=== PATIENT | female | born 1955 | race Caucasian/White ===

== ENCOUNTER → 2016-12-28 | Outpatient (CLI) | payer OTHER ==
[~2016-12-28] MED LIST: DAPA5TAB PO; GLIM2TAB2 PO; METO25TA4 PO; REGADENOSON 0.4 MG/5 ML DISP.SYRIN. IV ONE
--- NOTE | 2016-12-28 13:22 | RAD ---
APPROVED REPORT Test Type: Pharmacological Stress Nurse/Tech: ANGELA Caldera RN Test Indications: Frequent PVC, flutter feeling Cardiac History: see EHR Medications: Metoprolol, glimeripride, farxiga, [place] Medical History: Diabetes, see EHR Resting ECG: SR Resting Heart Rate: 71 bpm Resting Blood Pressure: 107/62mmHg Pretest Chest Pain: No chest pain Nurse/Tech Notes Lungs CTA, heart tones WNL Consent: The procedure was explained to the patient in lay terms. Informed consent was witnessed. Uche eout was entered into [employer]. History and Stress Test performed by [facility] [place] (R) (N) Pharm. Details Pharmacologic stress testing was performed using 0.4mg per 5ml of regadenoson given intravenously ove r 7-10 seconds. Stress Symptoms Reports chest heaviness approx 1 min POST EXERCISE Reason for Termination: Infusion complete Max HR: 126 bpm 94% of Maximum Predicted HR: 134 bpm Max Blood Pressure: 132/67mmHg Chest Pain: Yes. chest heaviness Arrhythmia: Yes. Bigeminal PVC ST Change: No. INTERPRETATION Stress EKG Conclusion: Baseline EKG showed sinus rhythm. No ischemic changes at peak stress. No arr hythmias. Imaging Protocol IMAGE PROTOCOL: Rest Tc-99m/stress Tc-99m 1 day Rest: Stress: Viability: Radiopharm.Tc99m [id number] Sestamibi Pisj89oYh 33mCi Img Date 12/28/2016 12/28/2016 Inj-Img Elty61tgn. 60min. Rest Admin Site:IV - Right AntecubitalAdministrator:[facility] [place] (R)(N) Stress Admin Site: IV - Right AntecubitalAdministrator: RT Jayesh (Carmen)(N) STRESS DATA End Diast. Vol.76.0mlAv. Heart Rate61.0bpm End Syst. Vol.20.0mlCO Index BSA0.0L/min Myocardial Omks904.0gEject. Ltkhbbbt01.0% Stress Rates Pk. Fill Rate2.49EDV/secLVtime Pk. Fill 303.42msec Pk. Empty Rate3.57ESV/secLVtime Pk. Fidkk256.65msec 10/31 Pk. Fill1.22EDV/sec Stress Scores Regional WT0.00Summed WT10.00 Regional WM0.00Summed WM0.00 Study quality was good. Left Ventricular size was Normal at Rest and Stress. Lung uptake was Normal. Left Ventricular ejection fraction is 74%. LV Perfusion Scintigraphic images showed breast attenuation artifact without any other fixed or reversible defects . Wall Motion Normal regional wall motion. LV Perf. Quant 17 Seg. SSS5.00 17 Seg. SRS4.00 17 Seg. SDS2.00 Stress Defect Extent (% LAD)0.00Rest Defect Extent (% LAD)1.30Rev. Defect Extent (% LAD)0.00 Stress Defect Extent (% LCX) 0.00Rest Defect Extent (% LCX)10.00Rev. Defect Extent (% LCX)0.00 Stress Defect Extent (% RCA)0.00Rest Defect Extent (% RCA)0.00Rev. Defect Extent (% RCA)0.00 Stress Defect Extent (% KWADWO)0.00Rest Defect Extent (% KWADWO)2.20Rev. Defect Extent (% KWADWO)0.00 Conclusion 1. Regadenoson cardioisotope stress test showed breast attenuation artifact without any definite evid ence of ischemia or infarct. 2. Normal left ventricular systolic function with ejection fraction calculated at 74%. 3. Low risk for cardiac events.
== END | disposition home or self-care (01) ==
LOC: NM 08:32
PROVIDERS: ATTEND Internal Medicine Cardiovascular Disease
DX: I49.3 Ventricular premature depolarization (principal); E11.9 Type 2 diabetes mellitus without complications
CPT/HCPCS: 78452; 93017; 96374; 96375; 96376; A9500; J2785

== ENCOUNTER → 2019-03-17 | Outpatient (CLI) | payer OTHER ==
[~2019-03-17] MED LIST changes: -REGADENOSON 0.4 MG/5 ML DISP.SYRIN. IV ONE
[2019-03-17 12:10] LABS: ALBUMIN 4.5 g/dL (3.4-5.0); ALBUMIN/GLOBULIN RATIO 1.4 (1.0-1.7); CALCIUM 9.3 mg/dL (8.5-10.1); CREATININE 0.7 mg/dL (0.6-1.0); GFR 84.2; POTASSIUM 4.5 mmol/L (3.5-5.1); TOTAL BILIRUBIN 0.5 mg/dL (0.2-1.0); TOTAL PROTEIN 7.8 g/dL (6.4-8.2)
[2019-03-17 12:12] LABS: CHOLESTEROL/HDL RATIO 4.2
== END | disposition home or self-care (01) ==
LOC: LAB 11:26
PROVIDERS: ATTEND Internal Medicine Cardiovascular Disease
DX: I49.3 Ventricular premature depolarization (principal)
CPT/HCPCS: 36415; 80053; 80061

== ENCOUNTER → 2021-01-06 | Outpatient (CLI) | payer MEDICARE ==
[~2021-01-06] MED LIST changes: -GLIM2TAB2 PO; +GLIM2TAB7 PO
--- NOTE | 2021-01-06 13:14 | KCIC ---
EXAM: Lumbar spine MRI without contrast. HISTORY: Right-sided lumbar radiculopathy. Right lower extremity numbness. Back pain. TECHNIQUE: Multiplanar, multisequence magnetic resonance imaging of the lumbar spine was performed wi thout contrast. COMPARISON: None. FINDINGS: There is grade 1 anterolisthesis of L4 on L5, measuring 6 mm. There is mild lumbar scoliosi s. There is degenerative endplate remodeling and osteophytosis with near complete loss of the disc sp kedar at L5-S1. There is disc desiccation at multiple levels. There are few osseous hemangiomas. The la rgest of these is seen within L5. There is no suspicious osseous lesion. There is no fracture. There is edema within the bilateral facet joints at L4-L5, likely degenerative or inflammatory in etiology. There is a Tarlov cyst within the sacral canal measuring 2.2 cm. The conus terminates at L1. At T12-L1, there is a shallow posterior central disc protrusion. There is no stenosis. At L1-L2, there is no stenosis. At L2-L3, there is a posterior central disc protrusion and annular tear superimposed on a disc bulge and right anterior predominant endplate osteophytosis. There is mild bilateral facet arthropathy. The re is mild central canal stenosis. At L3-L4, there is a disc bulge and endplate remodeling. There is mild bilateral facet arthropathy. T here is no stenosis. At L4-L5, there is a disc bulge and endplate remodeling. There is severe bilateral facet arthropathy. There is grade 1 anterolisthesis. There is moderate central canal stenosis. At L5-S1, there is a shallow broad-based posterior central disc protrusion and osteophyte complex sup erimposed on endplate osteophytosis. There is mild bilateral facet arthropathy. There is no stenosis. IMPRESSION: 1. Multilevel degenerative change involving the lumbar spine, described in detail above. This is asso ciated with mild central canal stenosis L2-L3 and moderate central canal stenosis at L4-L5. 2. Grade 1 anterolisthesis of L4 on L5 and mild lumbar scoliosis. Electronically signed by: Lola Mckeon MD (01/06/2021 1:12 PM) [id number]
== END ==
LOC: KCIC MRI 12:20
PROVIDERS: ATTEND Family Medicine
DX: M47.26 Other spondylosis with radiculopathy, lumbar region (principal); M48.061 Spinal stenosis, lumbar region without neurogenic claudication; M43.16 Spondylolisthesis, lumbar region
CPT/HCPCS: 72148

== ENCOUNTER → 2021-01-27 | Outpatient (CLI) | payer MEDICARE ==
[~2021-01-27] MED LIST changes: +ACET325T9 PO; +ALPH600C5 PO; +ASPI-630 PO; +BLOOD SUGAR PO; +CHOL500016 PO; +EMPA10TA PO; +GLUC1TAB71 PO; +IOHEXOL 180 MG/ML 10 ML VIAL. ONE; +SERT50TA PO; +[UNRECOGNIZED DRUG - OTHER] PO; +methylPREDNISolone ACETATE 40 MG/ML VIAL. ONE; +methylPREDNISolone ACETATE 80 MG/ML VIAL. ONE
--- NOTE | 2021-01-27 11:28 | PDOC1 ---
INITIAL PAIN CONSULT DATE OF SERVICE: DOS: DATE: 01/27/21 TIME: 11:21 CHIEF COMPLAINT: Chief Complaint: Low back and right lower extremity pain HISTORY OF PRESENT ILLNESS: 65-year-old female presents history of pain for many years in the low back and right lower extremity worse over the past 6 months or so without any specific injury or accident that she is aware of but gradually increasing in pain in the low back and right leg. Patient reports worse with walking and standing changing positions better with sitting or laying down but is awaken her from sleep at least once a night patient reports no loss of bowel or bladder control does affect her ability to walk however with pain in the low back rating right lower extremity posterior lateral thigh anterior thigh medial thigh to the knee on the right side patient reports it has a numbness sensation is radiating the right leg and changes during the day with activity she is on her feet longer is much more noticeable by the end of the day. Patient reports significant fatigability in the right leg when standing and walking but no overt motor loss or stumbling or falls. Patient reports no symptoms on the left lower extremity. Patient did have MRI scan lumbar spine showing L4-5 disc bulge and endplate remodeling with severe bilateral facet arthropathy and grade 1 anterolisthesis with moderate central canal stenosis L5-S1 showing broad-based posterior central disc protrusion osteophyte complex superimposed on endplate osteophyte ptosis with mild bilateral facet arthropathy. Patient rates her disability rating 0-10 10 being worst is 8 with family home responsibilities 9 with recreation 7 with social activity occupation 0 sexual behavior 7 with self-care and 5 life support activities. Patient is been taking Tylenol every 8 hours which does decrease the pain by about 30% also Osteo Bi-Flex and cyclobenzaprine which she reports helps to but only to a small extent. Patient reports no bowel or bladder incontinence or loss of motor function. PAST MEDICAL HISTORY: PMH: Type 2 diabetes, irregular heart rhythm, cataracts, arthritis PREVIOUS SURGERIES: Past Surgical Hx: Cataract extraction, left knee scope, cholecystectomy, tubal ligation, right foot surgery CURRENT MEDICATIONS: Current Meds: Active Scripts Medications Dose Route/Sig Max Daily Dose Days Date Category Vitamin D3 (Cholecalciferol (Vitamin D3)) 125 Mcg Tablet 125 Mcg PO DAILY 01/27/21 Reported Osteo Bi-Flex Caplet (Glucosamine/D3/Boswellia Anne) 1 Each Tablet 3 Each PO BID 01/27/21 Reported Alpha Lipoic Acid 600 Mg Capsule 1 Cap PO DAILY 30 01/27/21 Reported Tylenol (Acetaminophen) 325 Mg Tablet 1,200 Mg PO TID 01/27/21 Reported [carandsugarblocker] 1 Tab PO TID 01/27/21 Reported [blood sugar] 1 Tab PO DAILY 01/27/21 Reported Jardiance (Empagliflozin) 10 Mg Tablet 10 Mg PO DAILY 01/27/21 Reported Aspirin 81 Mg Tab.chew 1 Tab PO DAILY 01/27/21 Reported Zoloft (Sertraline Hcl) 50 Mg Tablet 1 Tab PO DAILY 01/27/21 Reported Glimepiride 2 Mg Tablet 2 Mg PO DAILY 12/28/16 Reported Metoprolol Tartrate 25 Mg Tablet 25 Mg PO BID 12/28/16 Reported ALLERGIES; Allergies: Coded Allergies: No Known Drug Allergies (Unverified , 12/28/16) FAMILY HISTORY: Family Hx: Type 2 diabetes, arthritis SOCIAL HISTORY: Social Hx: Patient is nondrug alcohol does not smoke not use any illegal illicit or recreational drugs is single lives 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 REVIEW OF SYSTEMS: ROS: Positive for those items mentioned in history of present illness, all systems are reviewed, otherwise negative ,and are complete full and well-documented on patient's chart. PHYSICAL EXAM: VS: Blood pressure is 100/47 pulse 65 respirations are 18 temperature 98.1 F height is 5 feet 5 inches weight is 201 pounds PE: PHYSICAL EXAMINATION: GENERAL: The patient is awake, alert, oriented, appropriate, very pleasant demeanor HEENT: Shows normocephalic, atraumatic. Extraocular movements are intact and symmetrical. Oral cavity: Mucous membranes moist and pink. Dentition is intact. NECK: Shows anterior throat supple without palpable lymphadenopathy noted. Swallow reflex symmetrical. CHEST: Shows normal on inspection. Breath sounds are clear bilaterally, no rales rhonchi wheezes auscultated. HEART: Shows S1, S2 clear. No murmurs auscultated. For ABDOMEN: Soft, nontender, nondistended, obese. No palpable organomegaly is noted. No rebound or guarding demonstrated. BACK: Shows spine grossly in the midline. Normal-appearing cervical lordotic curvature. There is slightly increased thoracic kyphosis, some minor flattening of the lumbar lordotic curvature. Lumbar paraspinous muscles show symmetrical on inspection, on palpation shows some moderate tenderness diffusely throughout the upper, middle and lower distribution of the paraspinous muscles bilaterally and also into the lower thoracic paraspinous musculature, firm and tender, but without specific trigger points, without radiation of pain. The patient has good rotational motion of the lumbar spine, both laterally as well as extension and flexion without significant difficulty. No tenderness over the spinous processes, sacrum or sacroiliac regions. EXTREMITIES: Lower extremities show deep tendon reflexes 1+ in the patellar and tendo calcaneus tendons. Motor exam is 4 on a scale of 5 with right dorsiflexion, extension, quadriceps and hamstring flexion and 5/5 on the left. Peripheral pulses are 1+ posterior tibial. No peripheral edema is noted bilaterally. Lower extremities are warm and dry to touch, equal in color and appearance. Straight leg raise noted to be positive on the right about 45 degrees, left side is negative. Gaenslen's and Ankit's maneuvers are negative bilaterally. The patient is able to stand, stand on her toes without significant difficulty or loss of balance walks with a normal-appearing gait does not appear to favor the right or left lower extremity significantly is not use any assistive devices such as canes or to ambulate. SKIN: Shows warm and dry, good turgor. No edema. No sores, rashes or bruising throughout. IMPRESSION: Impression: 65-year-old female with long history of low back pain with increased pain over the past 6 months or so and radicular fashion in the right lower extremity. MRI scan lumbar spine as noted Arthritis Hypertension Type 2 diabetes Plan: Options were discussed with the patient including conservative medical management physical therapies and interventional techniques. Patient would like to pursue interventional techniques, we discussed a lumbar epidural steroid injection using description as well as anatomical models to describe the procedure. Risks were discussed including but not limited to: Bleeding, infection, possibility of epidural hematoma and subsequent neurological compromise, dural puncture, headaches, spinal cord and/or nerve damage, side effects of steroid medication, and poor results regarding pain control. Patient understands and wished to proceed. Patient will return to the clinic approximate 2 weeks for follow-up, was counseled as to return appointment activity level and side effects be aware of. Procedure is lumbar epidural steroid injection under local anesthetic using sterile prep and drape at the L4-5 level using C-arm fluoroscopic guidance in both AP and lateral views medications injected is 120 mg Depo-Medrol + 10 mL preservative-free normal saline and 2 mL contrast- condition at discharge is stable patient tolerated procedure well had no complications. ROSARIO CARRASCO MD Jan 27, 2021 11:28
== END | disposition home or self-care (01) ==
LOC: PNCL 08:13
PROVIDERS: ATTEND Anesthesiology
DX: M47.816 Spondylosis without myelopathy or radiculopathy, lumbar region (principal); M48.061 Spinal stenosis, lumbar region without neurogenic claudication; M19.90 Unspecified osteoarthritis, unspecified site; I49.8 Other specified cardiac arrhythmias; E11.9 Type 2 diabetes mellitus without complications; Z98.51 Tubal ligation status; Z79.899 Other long term (current) drug therapy; Z98.890 Other specified postprocedural states; Z90.49 Acquired absence of other specified parts of digestive tract; Z79.82 Long term (current) use of aspirin; Z79.84 Long term (current) use of oral hypoglycemic drugs; Z83.3 Family history of diabetes mellitus; Z82.61 Family history of arthritis
CPT/HCPCS: 62323; J1030; J1040; Q9965

== ENCOUNTER → 2021-02-01 | Outpatient (CLI) | payer MEDICARE ==
[~2021-02-01] MED LIST changes: -IOHEXOL 180 MG/ML 10 ML VIAL. ONE; -methylPREDNISolone ACETATE 40 MG/ML VIAL. ONE; -methylPREDNISolone ACETATE 80 MG/ML VIAL. ONE
--- NOTE | 2021-02-01 17:10 | CARD ---
MR#: [id number] Date of Study: 02/01/2021 Ordering Physician: MARTA GUPTA, Referring Physician: MARTA GUPTA, Tech: Nitza Dotson [facility] APPROVED REPORT EXAM: Two-dimensional and M-mode echocardiogram with Doppler and color Doppler. Other Information Quality : AverageHR: 62bpm Rhythm : NSR INDICATION Palpitations 2D DIMENSIONS RVDd2.7 (2.9-3.5cm)Left Atrium(2D)3.6 (1.6-4.0cm) IVSd0.9 (0.7-1.1cm)Aortic Root(2D)3.2 (2.0-3.7cm) LVDd4.8 (3.9-5.9cm)LVOT Diameter2.1 (1.8-2.4cm) PWd1.0 (0.7-1.1cm)LVDs2.6 (2.5-4.0cm) FS (%) 45.5 %SV81.5 ml Aortic Valve AoV Peak Jonah.114.8cm/sAoV VTI24.2cm AO Peak GR.5.3mmHgLVOT Peak Jonah.93.8cm/s AO Mean GR.2mmHgAVA (VMAX)2.89cm2 Mitral Valve MV E Mhojkncp45.5cm/sMV DECEL [id number] MV A Nsxieuuj76.5cm/sE/A Ratio0.8 Pulmonary Valve PV Peak Dumsmbwt42.5cm/s Tricuspid Valve TR P. Kcrseczw982ix/sTR Peak Gr.18mmHg LEFT VENTRICLE The left ventricle is normal size. There is normal left ventricular wall thickness. The left ventricu lar systolic function is normal and the ejection fraction is within normal range. LV ejection fractio n of 55- 60%. There is normal LV segmental wall motion. The left ventricular diastolic function and f illing is normal for age. RIGHT VENTRICLE The right ventricle is normal size. There is normal right ventricular wall thickness. The right ventr icular systolic function is normal. ATRIA The left atrium size is normal. The right atrium size is normal. The interatrial septum is intact wit h no evidence for an atrial septal defect or patent foramen ovale as noted on 2-D or Doppler imaging. AORTIC VALVE The aortic valve is normal in structure and function. Doppler and Color Flow revealed no significant aortic regurgitation. There is no significant aortic valvular stenosis. MITRAL VALVE The mitral valve is normal in structure and function. There is no evidence of mitral valve prolapse. There is no mitral valve stenosis. Doppler and Color Flow revealed no mitral valve regurgitation note d. TRICUSPID VALVE The tricuspid valve is normal in structure and function. Doppler and Color Flow revealed trace tricus pid regurgitation. Estimated PAP 21 mmHg. There is no tricuspid valve stenosis. GREAT VESSELS The aortic root is normal in size. The ascending aorta is normal in size. The IVC is normal in size a nd collapses >50% with inspiration. PERICARDIAL EFFUSION There is no evidence of significant pericardial effusion. Critical Notification Critical Value: No <Conclusion> The left ventricle is normal size. The left ventricular systolic function is normal and the ejection fraction is within normal range. LV ejection fraction of 55- 60%. Doppler and Color Flow revealed no significant aortic regurgitation. There is no significant aortic valvular stenosis. Doppler and Color Flow revealed no mitral valve regurgitation noted. Doppler and Color Flow revealed trace tricuspid regurgitation. Estimated PAP 21 mmHg. Signed by : Guero Berry MD Electronically Approved : 02/01/2021 17:10:20
== END ==
LOC: ECHO 10:51
PROVIDERS: ATTEND Internal Medicine Cardiovascular Disease
DX: R00.2 Palpitations (principal); I49.3 Ventricular premature depolarization
CPT/HCPCS: 93306

== ENCOUNTER → 2021-02-15 | Outpatient (CLI) | payer MEDICARE ==
[~2021-02-15] MED LIST changes: +IOHEXOL 180 MG/ML 10 ML VIAL. ONE; +methylPREDNISolone ACETATE 40 MG/ML VIAL. ONE; +methylPREDNISolone ACETATE 80 MG/ML VIAL. ONE
--- NOTE | 2021-02-15 13:28 | PDOC ---
Progress Note - Pain Clinic Date of Service: DOS: DATE: 02/15/21 TIME: 13:25 Diagnosis: Dx: Lumbar radiculopathy with lumbar degenerative disease and lumbar spinal stenosis History or Present Illness: HPI: 65-year-old female returns follow-up status post lumbar epidural steroid action x1. Patient ports doing very well about 70% improvement until about a week ago when she had her dog run into her as it was exiting the car and knocked her to the side causing some significant pain in the right leg and low back. Patient reports prior that she is doing very well with increased distance walking doing household activities work activities travel with greater ease and comfort sleeping better at night patient reports still better with sitting or laying down does not generally awaken her from sleep at night patient reports the pain is in the low back now returning in the low back and right lower extremity po sterior gluteus posterior lateral thigh lateral anterior thigh anterior medial thigh and calf patient ports aching and tight cramping can be severe at times patient reports is an 8 on scale 10 is worse over the past week 8 on average and 8/8 today. Patient reports no new motor or sensory deficits no new bowel or bladder incontinence or other complaints at this time. Physical Exam: VS: Blood pressure is 126/74 pulse 73 respirations 16 temperature is 98.0 degrees Fahrenheit weight is 199 pounds PE: PHYSICAL EXAMINATION: GENERAL: The patient is awake, alert, oriented, appropriate, very pleasant demeanor HEENT: Shows normocephalic, atraumatic. Extraocular movements are intact and symmetrical. Oral cavity: Mucous membranes moist and pink. NECK: Shows anterior throat supple without palpable lymphadenopathy noted. Swallow reflex symmetrical. CHEST: Shows normal on inspection. Breath sounds are clear bilaterally. HEART: Shows S1, S2 clear. No murmurs auscultated. ABDOMEN: Soft, nontender, nondistended. No palpable organomegaly is noted. No rebound or guarding demonstrated. BACK: Shows spine grossly in the midline. Normal-appearing cervical lordotic curvature. There is slightly increased thoracic kyphosis, some minor flattening of the lumbar lordotic curvature. Lumbar paraspinous muscles show symmetrical on inspection, on palpation shows some moderate tenderness diffusely throughout the upper, middle and lower distribution of the paraspinous muscles, without specific trigger points, without radiation of pain. The patient has good rotational motion of the lumbar spine, both laterally as well as extension and flexion without significant difficulty. No tenderness over the spinous processes, sacrum or sacroiliac regions. EXTREMITIES: Lower extremities show deep tendon reflexes 1+ in the patellar and tendo calcaneus tendons. Motor exam is 4 on a scale of 5 with right dorsiflexion, extension, quadriceps and hamstring flexion and 5/5 on the left. Peripheral pulses are 1+ posterior tibial. No peripheral edema is noted bilaterally. Lower extremities are warm and dry to touch, equal in color and appearance. SKIN: Shows warm and dry, good turgor. No edema. No sores, rashes or bruising throughout. Procedure: Procedure: Options were discussed with the patient. Patient chart was reviewed as her current medication regimen updated and current review of systems updated today as well. We will proceed with a second in a series lumbar epidural steroid injection with fluoroscopic guidance. Risks were discussed including but not limited to: Bleeding, infection, possibility of epidural hematoma and subsequent neurological compromise, dural puncture, headaches, spinal cord and/or nerve damage, side effects of steroid medication, and poor results regarding pain control. Patient understands and wished to proceed. Patient will return to clinic in approximately 2 weeks for follow-up, was counseled as to return appointment activity level and side effects to be aware of. Medication Injected: Med Injected: Procedure is lumbar epidural steroid injection under local anesthetic using sterile prep and drape at the L4-5 level using C-arm fluoroscopic guidance in b oth AP and lateral views medications injected is 120 mg Depo-Medrol + 10 mL preservative-free normal saline and 2 mL contrast- condition at discharge is stable patient tolerated procedure well had no complications. Condition at Discharge: Condition at Discharge: Condition at discharge stable, patient noted the procedure well and had no complications. ROSARIO CARRASCO MD Feb 15, 2021 13:28
--- NOTE | 2021-02-15 13:29 | PDOC4 ---
PROCEDURE Procedure Patient was consented for lumbar epidural steroid injection. Risks were dis cussed including but not limited to: Bleeding, infection, possibility of epidural hematoma and subsequent neurological compromise, dural puncture, headaches, spinal cord and/or nerve damage, side effects of steroid medication, and poor results regarding pain control. Patient understands and wished to proceed. Procedure is lumbar epidural steroid injection under local anesthetic using sterile prep and drape at the L4-5 level using C-arm fluoroscopic guidance in both AP and lateral views medications injected is 120 mg Depo-Medrol + 10 mL preservative-free normal saline and 2 mL contrast- condition at discharge is stable patient tolerated procedure well had no complications. ROSARIO CARRASCO MD Feb 15, 2021 13:29
== END | disposition home or self-care (01) ==
LOC: PNCL 12:55
PROVIDERS: ATTEND Anesthesiology
DX: M51.16 Intervertebral disc disorders with radiculopathy, lumbar region (principal); M48.061 Spinal stenosis, lumbar region without neurogenic claudication; Z79.82 Long term (current) use of aspirin; Z79.84 Long term (current) use of oral hypoglycemic drugs; Z79.899 Other long term (current) drug therapy
CPT/HCPCS: 62323; J1030; J1040; Q9965

== ENCOUNTER → 2021-03-01 | Outpatient (CLI) | payer MEDICARE ==
--- NOTE | 2021-03-01 14:09 | PDOC ---
Progress Note - Pain Clinic Date of Service: DOS: DATE: 03/01/21 TIME: 14:03 Diagnosis: Dx: Lumbar radiculopathy lumbar degenerative disease, and lumbar spinal stenosis History or Present Illness: HPI: 65-year-old female returns for post lumbar epidural steroid injection x2. Patient reports about 80% improvement in the low back and right lower extremity pain. Patient reports some pain in the back above the hip on the right side and the right flank which has been more problematic at night with some spasticity and tightness otherwise doing much better with the pain in the low back and right lower extremity patient reports he can increase her activity with greater ease and comfort walking greater distances doing household activities work activities travel with greater ease and sleeping better as long as she keeps her right leg straight on her right side. Patient reports the pain is a 10 on scale 10 is worse over the past week 9 on average 7 at its least and is a 10 only when she is been sleeping with her right leg bent and flexed at the hip. Patient reports the pain in the low back and right leg is aching and tight shooting at times stabbing with standing and walking better with sitting or laying down except for laying on her right side is noted. Patient reports no new motor or sensory deficits no new bowel or bladder incontinence or other complaints. Physical Exam: VS: Blood pressure is 131/69 pulse 73 respirations 18 temperature 98.1 F height is 5 feet 5 inches weight is 195 pounds PE: PHYSICAL EXAMINATION: GENERAL: The patient is awake, alert, oriented, appropriate, very pleasant demeanor HEENT: Shows normocephalic, atraumatic. Extraocular movements are intact and symmetrical. Oral cavity: Mucous membranes moist and pink. Dentition is intact. NECK: Shows anterior throat supple without palpable lymphadenopathy noted. Swallow reflex symmetrical. CHEST: Shows normal on inspection. Breath sounds are clear bilaterally. HEART: Shows S1, S2 clear. No murmurs auscultated. ABDOMEN: Soft, nontender, nondistended, obese. No palpable organomegaly is noted. No rebound or guarding demonstrated. BACK: Shows spine grossly in the midline. Normal-appearing cervical lordotic curvature. There is mildly increased thoracic kyphosis, some flattening of the lumbar lordotic curvature. Lumbar paraspinous muscles show symmetrical on inspection, on palpation shows some moderate tenderness diffusely throughout the upper, middle and lower distribution of the paraspinous muscles without specific trigger points, without radiation of pain. The patient has good rotational motion of the lumbar spine, both laterally as well as extension and flexion without significant difficulty. No tenderness over the spinous processes, sacrum or sacroiliac regions. EXTREMITIES: Lower extremities show deep tendon reflexes 1+ in the patellar and tendo calcaneus tendons. Motor exam is 4 on a scale of 5 with right dorsiflexion, extension, quadriceps and hamstring flexion and 5/5 on the left. Peripheral pulses are 1+ posterior tibial. No peripheral edema is noted bilaterally. Lower extremities are warm and dry. SKIN: Shows warm and dry, good turgor. No edema. No sores, rashes or bruising throughout. Procedure: Procedure: Options were discussed with the patient. Patient chart reviews her current medication regimen updated current review of systems updated today as well. We will proceed with a third in the series lumbar epidural steroid injection today with fluoroscopic guidance. Risks were discussed including but not limited to: Bleeding, infection, possibility of epidural hematoma and subsequent neur ological compromise, dural puncture, headaches, spinal cord and/or nerve damage, side effects of steroid medication, and poor results regarding pain control. Patient understands and wished to proceed. Patient will return to clinic in approximate 2 weeks for follow-up, was counseled as to return appointment activity level and side effects to be aware of. Medication Injected: Med Injected: Procedure is lumbar epidural steroid injection under local anesthetic using sterile prep and drape at the L4-5 level using C-arm fluoroscopic guidance in both AP and lateral views medications injected is 120 mg Depo-Medrol + 10 mL preservative-free normal saline and 2 mL contrast- condition at discharge is stable patient tolerated procedure well had no complications. Condition at Discharge: Condition at Discharge: Condition at discharge stable, patient already procedure well and had no complications. ROSARIO CARRASCO MD March 01, 2021 14:09
--- NOTE | 2021-03-01 14:10 | PDOC4 ---
PROCEDURE Procedure Patient was consented for lumbar epidural steroid injection. Risks were dis cussed including but not limited to: Bleeding, infection, possibility of epidural hematoma and subsequent neurological compromise, dural puncture, headaches, spinal cord and/or nerve damage, side effects of steroid medication, and poor results regarding pain control. Patient understands and wished to proceed. Procedure is lumbar epidural steroid injection under local anesthetic using sterile prep and drape at the L4-5 level using C-arm fluoroscopic guidance in both AP and lateral views medications injected is 120 mg Depo-Medrol + 10 mL preservative-free normal saline and 2 mL contrast- condition at discharge is stable patient tolerated procedure well had no complications. ROSARIO CARRASCO MD March 01, 2021 14:10
== END | disposition home or self-care (01) ==
LOC: PNCL 13:12
PROVIDERS: ATTEND Anesthesiology
DX: M51.16 Intervertebral disc disorders with radiculopathy, lumbar region (principal); M48.061 Spinal stenosis, lumbar region without neurogenic claudication; Z79.82 Long term (current) use of aspirin; Z79.899 Other long term (current) drug therapy
CPT/HCPCS: 62323; J1030; J1040; Q9965

== ENCOUNTER → 2021-07-20 | Outpatient (CLI) | payer MEDICARE ==
[~2021-07-20] MED LIST changes: -IOHEXOL 180 MG/ML 10 ML VIAL. ONE; -methylPREDNISolone ACETATE 40 MG/ML VIAL. ONE; -methylPREDNISolone ACETATE 80 MG/ML VIAL. ONE
--- NOTE | 2021-07-21 09:02 | KCIC ---
XR LUMBAR SPINE 2-3V History: Chronic low back pain Comparison: None. Technique: Lateral neutral, flexion and extension views of the lumbar spine. Findings: There are 5 non-rib bearing lumbar vertebral segments. There is no evidence of fracture. No destructive osseous lesions. Minimal anterolisthesis of L4 on L5. No significant motion with flexion and extension. Facet hypertrophy L4-L5 and L5-S1. Severe disc space loss L5-S1. Mild disc space loss L4-L5. Multilevel marginal osteophytes with large flowing osteophytes at the lower thoracic spine, L1-L2 and L2-L3. Soft tissues are unremarkable. IMPRESSION: 1. Degenerative changes the lumbar spine greatest at L5-S1. 2. Mild anterolisthesis of L4 on L5. No abnormal motion during flexion and extension. Electronically signed by: Zachariah Nicole MD (07/21/2021 8:59 AM) [id number]
== END ==
LOC: KCIC 14:29
PROVIDERS: ATTEND Neurological Surgery
DX: M47.817 Spondylosis without myelopathy or radiculopathy, lumbosacral region (principal); M43.17 Spondylolisthesis, lumbosacral region; M25.78 Osteophyte, vertebrae
CPT/HCPCS: 72100

== ENCOUNTER 2021-08-23 09:28 | Outpatient (CLI) | payer MEDICARE ==
[~2021-08-23 09:28] MED LIST changes: +IOHEXOL 180 MG/ML 10 ML VIAL. ONE; +LIDOCAINE 1% Multi-Dose 20 ML VIAL. ONE
[2021-08-23 10:34] VITALS: BP 132/68
[2021-08-23 10:46] VITALS: BP 144/70
--- NOTE | 2021-08-23 10:46 | NUR ---
VS stable. No bleeding at access site. No headache. Instructions provided-- patient signed, verbalized understanding. Patient able to drink Diet Coke, no nausea. Does not want food at this time. Patient's friend driving home. All belongings taken w. patient at time of d/c.
[2021-08-23 10:51] VITALS: BP 146/73
--- NOTE | 2021-08-23 10:59 | RAD ---
EXAM: Fluoroscopic guided lumbar puncture for CT myelography; lumbar spine CT myelogram. HISTORY: 66-year-old female with right leg pain and numbness. TECHNIQUE: The risks of the procedure discussed with the patient and written and verbal consent was o btained. A timeout was performed. The patient was placed in a prone position on the fluoroscopy table and a site overlying L5-S1 was selected for needle entry. The skin in this location was sterilely pr epped, draped and infiltrated with 1 percent lidocaine. A 22-gauge needle was advanced into the theca l sac. 12 cc of Omnipaque 180 intrathecal contrast was then injected into the thecal sac. The needle was removed and a sterile measures placed at the needle entry sites. Standing upright neutral and fle xion and extension fluoroscopic images were obtained. The patient was transferred to the CT suite for the post injection CT portion of the exam and discharged one hour following the procedure in stable condition. There is no immediate complication. 3 fluoroscopic images were obtained for total fluorosc opy time of 30 seconds. *One or more of the following individualized dose reduction techniques were utilized for this examina tion: 1. Automated exposure control. 2. Adjustment of the mA and/or kV according to patient size. 3. Use of iterative reconstruction technique. COMPARISON: MRI dated 01/06/2021. FINDINGS: There is 5 mm grade 1 anterolisthesis of L4 forward on L5. There is lucency and sclerosis i nvolving the left pars interarticularis at this level, suggesting a partial pars defect. There is no additional listhesis. There is multilevel endplate remodeling. There is near complete loss of the dis c space at L5-S1. There are bridging and partially bridging anterior osteophytes at the lower thoraci c and upper lumbar levels. There is no fracture or suspicious osseous lesion. The conus terminates at L1. There is an incidental peripherally calcified splenic artery aneurysm, partially included on the fiel d-of-view and measuring at least 1.7 cm. There is degenerative spurring, subchondral sclerosis and va cuum phenomenon involving the sacroiliac joints. At T12-L1, there is a broad-based left paracentral disc protrusion. There is endplate remodeling. The re is no stenosis. At L1-L2, there is endplate remodeling. There is no stenosis. At L2-L3, there is a broad-based posterior central disc protrusion superimposed on a disc bulge and e ndplate remodeling. There is mild bilateral facet arthropathy. There is mild central canal stenosis. At L3-L4, there is a disc bulge and endplate remodeling. There is mild bilateral facet arthropathy. T here is mild central canal stenosis. At L4-L5, there is a disc bulge and endplate remodeling. There is severe bilateral facet arthropathy. There is prominent dorsal epidural fat. There is grade 1 anterolisthesis. There is mild left foramin al stenosis. There is moderate central canal stenosis. At L5-S1, there is partial bony bridging across the disc space. There is a broad-based left paracentr al to lateral recess bridging osteophyte. There is moderate right and mild left facet arthropathy. Th ere is mild left foraminal stenosis. There is narrowing of the left lateral recess. IMPRESSION: 1. Multilevel degenerative change involving the lumbar spine, described in detail above. This is asso ciated with mild central canal stenosis at L2-L3 and L3-L4, mild left foraminal and moderate central canal stenosis at L4-L5 and mild left foraminal stenosis and narrowing of the left lateral recess at L5-S1. 2. Grade 1 anterolisthesis of L4 and L5 with suspected partial left pars defect. Electronically signed by: Lola Mckeon MD (08/23/2021 10:57 AM) [id number]
--- NOTE | 2021-08-23 11:02 | NUR ---
Disc given to patient.
[2021-09-14] MEDS ORDERED: UBID200C7 PO (13:23)
[2021-09-14] MEDS ORDERED: HYDR12.575 PO (13:23)
[2021-09-14] MEDS ORDERED: TIZA4TAB8 PO (13:23)
[2021-09-14] MEDS ORDERED: VITA1TAB19 PO (13:23)
[2021-09-14] MEDS ORDERED: PIOG30TA41 PO (13:23)
[2021-09-14] MEDS ORDERED: CALC-32 PO (13:23)
[2021-09-14] MEDS ORDERED: METF-658 PO (13:23)
[2021-09-14] MEDS ORDERED: ASCO1CAP2 PO (13:23)
[2021-09-14] MEDS ORDERED: CYAN50009 PO (13:23)
[2021-09-14] MEDS ORDERED: BERBERINE PO (13:23)
[2021-09-14] MEDS ORDERED: CINN1CAP PO (13:23)
[2021-09-14] MEDS ORDERED: THC PO (13:27)
[2021-09-14] MEDS ORDERED: [UNRECOGNIZED DRUG - OTHER] PO (13:27)
== END 2021-08-23 11:01 | disposition home or self-care (01) ==
LOC: RAD 09:28
PROVIDERS: ATTEND Neurological Surgery
DX: M47.816 Spondylosis without myelopathy or radiculopathy, lumbar region (principal); M48.061 Spinal stenosis, lumbar region without neurogenic claudication; M79.604 Pain in right leg; Z79.82 Long term (current) use of aspirin; Z79.899 Other long term (current) drug therapy
CPT/HCPCS: 62304; 72132

== ENCOUNTER → 2021-09-14 | Outpatient (CLI) | payer MEDICARE ==
[2021-08-23 10:51] VITALS: BP 146/73
[~2021-09-14] MED LIST changes: +ASCO1CAP2 PO; +BERBERINE PO; +CALC-32 PO; +CINN1CAP PO; +CYAN50009 PO; +DOCU-109 PO; +HYDR12.575 PO; -IOHEXOL 180 MG/ML 10 ML VIAL. ONE; -LIDOCAINE 1% Multi-Dose 20 ML VIAL. ONE; +METF-658 PO; +OXYC1TAB15 PO; +PIOG30TA41 PO; +THC PO; +TIZA4TAB8 PO; +UBID200C7 PO; +VITA1TAB19 PO; +[UNRECOGNIZED DRUG - OTHER] PO
[2021-09-14 13:28] LABS: BASO % 1 % (0-3); EOS # 0.1 x10^3/uL (0.0-0.7); EOS % 2 % (0-3); HEMOGLOBIN 13.2 g/dL (12.0-15.5); LYMPH # 1.3 x10^3/uL (1.0-4.8); LYMPH % 26 % (24-48); MEAN CORPUSCULAR HEMOGLOBIN 32 pg (25-35); MEAN CORPUSCULAR HGB CONC 34 g/dL (31-37); MEAN CORPUSCULAR VOLUME 93 fL (79-100); MONO # 0.5 x10^3/uL (0.0-1.1); MONO % 10 % (0-9); NEUT % 62 % (31-73); PLATELET COUNT 279 x10^3/uL (140-400); RED BLOOD COUNT 4.17 x10^6/uL (3.50-5.40); WHITE BLOOD COUNT 4.8 x10^3/uL (4.0-11.0)
[2021-09-14 13:39] LABS: PROTHROMBIN TIME PATIENT 12.5 SEC (11.7-14.0)
[2021-09-14 13:49] LABS: ALBUMIN 4.1 g/dL (3.4-5.0); ALBUMIN/GLOBULIN RATIO 1.5 (1.0-1.7); CALCIUM 8.9 mg/dL (8.5-10.1); CREATININE 0.6 mg/dL (0.6-1.0); GFR 99.7; POTASSIUM 4.1 mmol/L (3.5-5.1); TOTAL BILIRUBIN 0.5 mg/dL (0.2-1.0); TOTAL PROTEIN 6.9 g/dL (6.4-8.2)
[2021-09-16 02:08] LABS: HEMOGLOBIN A1C 7.4 % (4.8-5.6)
== END ==
LOC: SURGPAT 12:50
PROVIDERS: ATTEND Neurological Surgery
DX: Z01.818 Encounter for other preprocedural examination (principal); M43.16 Spondylolisthesis, lumbar region; M48.062 Spinal stenosis, lumbar region with neurogenic claudication; M54.16 Radiculopathy, lumbar region
CPT/HCPCS: 36415; 80053; 83036; 85025; 85610; 85730; 87641

== ENCOUNTER → 2021-09-16 | Outpatient (CLI) | payer MEDICARE ==
[2021-08-23 10:51] VITALS: BP 146/73
== END ==
LOC: LAB 10:28
PROVIDERS: ATTEND Neurological Surgery
DX: Z01.812 Encounter for preprocedural laboratory examination (principal); Z20.822 Contact with and (suspected) exposure to COVID-19
CPT/HCPCS: U0003; U0005

== ENCOUNTER → 2021-10-14 | Outpatient (CLI) | payer MEDICARE ==
[2021-09-21 11:00] VITALS: BP 125/42
--- NOTE | 2021-10-15 08:45 | KCIC ---
EXAM: Lumbar spine, 2 views. HISTORY: Lumbar surgery. COMPARISON: 08/23/2021. FINDINGS: 2 views of the lumbar spine are obtained. There is instrumented posterior spinal fusion wit h disc space fusion device placement at L4-L5. There is a 6 mm grade 1 anterolisthesis of L4 on L5. T here is 2 mm retrolisthesis of L1 on L2 and 3 mm retrolisthesis of L5 on S1. There is multilevel endp late remodeling. There are bridging and partially bridging anterior osteophytes at the lower thoracic and upper lumbar levels. There is near complete loss of the disc space and advanced facet arthropath y at L5-S1. There are incidental cholecystectomy clips. There is degenerative spurring involving the sacroiliac joints. There is suspected bone demineralization. IMPRESSION: 1. Instrumented posterior spinal fusion and disc space fusion device placement at L4-L5. There is unc hanged grade 1 anterolisthesis at this level. 2. Multilevel degenerative change throughout the remainder of the lower thoracic and lumbar spine, de scribed in detail above. This is unchanged compared to the prior exam, allowing for differences in im aging modality. Electronically signed by: Lola Mckeon MD (10/15/2021 8:42 AM) [facility]
== END ==
LOC: KCIC 15:24
PROVIDERS: ATTEND Neurological Surgery
DX: M47.815 Spondylosis without myelopathy or radiculopathy, thoracolumbar region (principal); M43.17 Spondylolisthesis, lumbosacral region; M25.78 Osteophyte, vertebrae; M48.8X7 Other specified spondylopathies, lumbosacral region; Z98.1 Arthrodesis status
CPT/HCPCS: 72100

== ENCOUNTER → 2021-10-25 | Outpatient (CLI) | payer MEDICARE ==
[2021-09-21 11:00] VITALS: BP 125/42
[~2021-10-25] MED LIST changes: +GADOTERATE 5 MMOL/10ML VIAL. IVP ONE
--- NOTE | 2021-10-25 10:31 | KCIC ---
EXAMINATION: Magnetic resonance imaging (MRI) of the lumbar spine with and without contrast 8:10 AM HISTORY: Lumbar spine operation 09/19/2021. Right lower extremity numbness and tingling TECHNIQUE: Multiplanar multi-weighted MRI of the lumbar spine was performed with and without intraven ous contrast using the standard lumbar spine protocol. Contrast information: Gadolinium based contrast. COMPARISON: CT lumbar spine 09/17/2021, MRI lumbar spine 01/06/2021 FINDINGS: Posterior and interbody fusion is identified at L4-L5 with bilateral pedicle screws and dual rods. Th ere is edema involving the endplates of L4 on L5. Vertebral body heights are maintained. Acute fractu re. There is 1 mm retrolisthesis of L3 on L4. There is 3 mm retrolisthesis of L4 on L5, stable. Advan alejandra disc height loss L5-S1. Conus medullaris terminates at L1. Distal spinal cord signal intensity is normal in all sequences. Disc desiccation at all of the lumbar spine, sparing L1-L2. Kidneys are nor mal in appearance. Abdominal aorta is normal in caliber. No suspicious retroperitoneal abnormality is identified. There is reactive enhancement identified at L4-L5 from recent surgery. No abscess or com pressive epidural hematoma. L2-L3: There is a disc bulge with central disc protrusion. Mild facet arthropathy. Moderate bilateral neuroforaminal stenosis. Mild spinal canal stenosis. Findings are stable. L3-L4: There is a circumferential disc bulge. Mild facet arthropathy. Mild to moderate left and moder ate neural foraminal stenosis. No significant spinal canal stenosis. L4-L5: This level is fused and decompressed. No residual lateral recess stenosis or spinal canal sten osis. There is persistent right neuroforaminal stenosis. L5-S1: There is a posterior disc osteophyte complex is stable. Mild facet arthropathy. Mild left neur oforaminal stenosis. No spinal canal stenosis. Tarlov cyst identified at S2 measuring 2.0 cm. IMPRESSION: Posterior and interbody fusion identified at L4-L5 with expected postsurgical changes identified. No significant epidural abscess or hematoma. No residual spinal canal stenosis. Mild to moderate degenerative changes of lumbar spine as described in detail above. Findings are not significant changed at additional levels. Electronically signed by: Maida Robertson MD (10/25/2021 10:28 AM) [id number]
== END ==
LOC: KCIC MRI 07:57
PROVIDERS: ATTEND Neurological Surgery
DX: M47.26 Other spondylosis with radiculopathy, lumbar region (principal); M51.27 Other intervertebral disc displacement, lumbosacral region; M48.8X7 Other specified spondylopathies, lumbosacral region; M48.07 Spinal stenosis, lumbosacral region; G96.191 Perineural cyst; M43.16 Spondylolisthesis, lumbar region; M51.37 Other intervertebral disc degeneration, lumbosacral region; Z98.1 Arthrodesis status
CPT/HCPCS: 72158; 82565; A9575

== ENCOUNTER 2021-11-14 06:13 | Inpatient (IN) | payer MEDICARE ==
[2021-11-10 14:29] VITALS: BP 150/70
--- NOTE | 2021-11-13 14:06 | PREOP HP ---
DATE OF SERVICE: 11/14/2021 HISTORY OF PRESENT ILLNESS: The patient is a pleasant 66-year-old who has continued to have right-sided lower back pain and pain in her right hip and lateral thigh and inguinal region since her surgery in August, which was decompression and interbody fusion at L4-5. The tingling can radiate down to her right foot. Mornings are particularly uncomfortable for her. Walking is also difficult for her. She said a Medrol Dosepak did help her. She uses a walker. CURRENT MEDICATIONS: Tylenol, vitamin B12, Osteo Bi-Flex, cinnamon, biotin, vitamin C, collagen, coenzyme Q10, aspirin, sertraline, hydrochlorothiazide, pioglitazone, metformin, tizanidine, Percocet. PAST MEDICAL HISTORY: Arthritis, diabetes. PAST SURGICAL HISTORY: Cholecystectomy, tubal ligation, right foot surgery, left knee surgery, cataract surgery, instrumented lumbar fusion L4-5 in 08/2021. FAMILY HISTORY: Diabetes. SOCIAL HISTORY: Retired. . Does not smoke. Drinks alcohol 1-2 times per year. ALLERGIES: No known drug allergies. REVIEW OF SYSTEMS: A 12-point review of systems was performed and is noncontributory except that mentioned above. PHYSICAL EXAMINATION: GENERAL: Alert, pleasant, in no acute distress. HEENT: Head is normocephalic, atraumatic. SKIN: Warm and dry. Well-healed incision. MUSCULOSKELETAL: Lumbar paraspinal muscle bulk is normal, restricted range of motion of the lumbar spine, aoat-us-dnimortr tenderness of the lower lumbar spine with palpation, normal range of motion of the lower extremities bilaterally. EXTREMITIES: No clubbing, cyanosis or edema. NEUROLOGIC: Alert and oriented x 3. Strength is 5/5 in the lower extremities bilaterally. Sensory was intact to light touch in the lower extremities bilaterally except for decrease in the dorsum of her left foot, reflexes were present and symmetric in the lower extremities bilaterally, negative straight leg raising, ambulates with a walker. IMAGING: I reviewed a lumbar MRI scan. On that study at the foramen at L4-5 on the right, this appears occluded. There is metal artifact, which makes more accurate interpretation difficult. ASSESSMENT AND PLAN: I am very concerned that there is some narrowing of the right-sided foramen at L4-5 as well as lateral recess stenosis causing radicular pain. This area needs to be explored carefully. She has had plenty of time and conservative measures to improve and has not done so and is worsening. I spoke with her about hardware removal, decompression of the foramen and hardware replacement, fusion and closure. She understands the technique and the risk as well as the expected postoperative course and would like to go ahead. We will make the arrangements. HAVEN DR: Mariza TID: [id number] [facility]ITAL[facility]
[~2021-11-14] VITALS: Ht 165.1 cm; Wt 88.3 kg
[~2021-11-14 06:13] MED LIST changes: +DEXAMETHASONE SOD PHOS 4 MG/ML VIAL ONE; +EZET10TA20 PO; -GADOTERATE 5 MMOL/10ML VIAL. IVP ONE; +GLYCOPYRROLATE 1 MG/5 ML VIAL. ONE; +HYDROmorphone 2 MG/ML INJ. IVP PRN; +IV RINGERS,LACTATED 1000ML 1,000 ML IV SCH; +LIDOCAINE 2% PF 5 ML VIAL. ONE; +MORPHINE SULFATE 2 MG/ML INJ. IVP PRN; +NEOSTIGMINE METHYLSULFATE 5 MG/5 ML SYRINGE. ONE; +PHENYLEPHRINE 10 MG/ML VIAL. ONE; +PROCHLORPERAZINE 10 MG/2 ML VIAL. IVP PRN; +PROPOFOL 10 MG/ML (20ML) VIAL. IV ONE; +PROPOFOL 50 ML IV ONE; +REMIFENTANIL 1 MG VIAL. IV ONE; +ROCURONIUM 50 MG/5 ML VIAL. ONE; +SEVOFLURANE > 120 MINUTES. IH ONE; +SUCCINYLCHOLINE 200 MG/10 ML VIAL. ONE; +fentaNYL PF VIAL 100 MCG/2 ML VIAL IVP PRN
[2021-11-14] MEDS ORDERED: THROMBIN TOPICAL 20,000 UNIT SPRAY.SYRN KIT TP ONE ×2 (06:32→10:05)
[2021-11-14] MEDS ORDERED: KETOROLAC 60 MG/2 ML VIAL. ONE (06:32)
[2021-11-14] MEDS ORDERED: BUPIVACAINE-EPI 0.5% 30 ML VIAL KIT. ONE (06:32)
[2021-11-14] MEDS ORDERED: GELATIN SPONGE SIZE 100. ONE (06:32)
[2021-11-14 06:53] VITALS: BP 115/59
[2021-11-14] MEDS ORDERED: INSULIN LISPRO 100 UNIT/ML 3ML VIAL for OP,RR ONLY. SQ PRN (07:00)
[2021-11-14] MEDS ORDERED: ceFAZolin SODIUM 1 GM in IV NORMAL SALINE 1000ML BAG 1,000 ML IRR ONE (07:00)
[2021-11-14] MEDS ORDERED: EPINEPHrine VIAL 30 MG/30 ML VIAL ONE (07:22)
[2021-11-14] MEDS ORDERED: HYDROCORTISONE SOD SUCC/PF 100 MG/2 ML VIAL. ONE (07:32)
[2021-11-14] MEDS ORDERED: KETAMINE HCL IN NACL, ISO-OSM 50 MG/5 ML SYRINGE ONE (08:07)
--- NOTE | 2021-11-14 08:22 | RAD ---
CT LUMBAR SPINE WO History:Reason: BRAIN LAB. LUMBAR RADICULOPATHY / Spl. Instructions: / History: Technique: Noncontrast CT was performed of the lumbar spine. Multiplanar reconstructions were perform ed. Exposure: One or more of the following individualized dose reduction techniques were utilized for thi s examination: 1. Automated exposure control 2. Adjustment of the mA and/or kV according to patient size 3. Use of iterative reconstruction technique. Comparison: MRI October 17, 2021 Findings: Posterior stabilization and interbody fusion L4-L5. Grade 1 anterolisthesis L4 on L5. Normal vertebra l body height. No acute fracture. L5-S1 bony intervertebral fusion. Sacral Tarlov cysts noted. T12-L1: Posterior calcified disc bulge. No canal or neuroforaminal narrowing. L1-L2: Small disc bulge. No canal or neuroforaminal narrowing. L2-L3: Broad-based disc bulge. Mild subarticular recess narrowing. No canal narrowing. Minimal right neuroforaminal narrowing. L3-L4: Broad-based disc bulge. Mild canal narrowing. Subacute recess narrowing. Facet arthropathy. L igament of flavum thickening. Mild bilateral neuroforaminal narrowing. L4-L5: Anterolisthesis. Disc uncovering. Disc bulge. No definite canal narrowing although evaluation is degraded by beam hardening artifact from hardware. Severe right and moderate left neuroforaminal narrowing. L5-S1: Bony intervertebral fusion. No canal narrowing. Posterior decompression. Mild bilateral neuro foraminal narrowing. When compared the prior examination the degenerative findings are similar. Impression: 1. Postoperative changes L4-L5. 2. Multilevel lumbar spondylosis most prominent superior junctional level L3-L4. 3. L3-L4 mild canal narrowing. 4. Neuroforaminal narrowing most prominent L4-5. Electronically signed by: Erik Navarrete DO (11/14/2021 8:20 AM) [id number]
[2021-11-14] MEDS ORDERED: PROPOFOL 50 ML IV ONE ×2 (09:19)
[2021-11-14] MEDS ORDERED: BUPIVACAINE-EPI 0.5% 30 ML VIAL KIT. INJ ONE (10:05)
[2021-11-14] MEDS ORDERED: GELATIN SPONGE SIZE 100. TP ONE (10:05)
[2021-11-14] MEDS ORDERED: KETOROLAC 60 MG/2 ML VIAL. INJ ONE (10:05)
[2021-11-14] MEDS ORDERED: REMIFENTANIL 1 MG VIAL. IV ONE (10:20)
[2021-11-14] MEDS ORDERED: HYDROmorphone 2 MG/ML INJ. ONE ×3 (11:37→15:12)
[2021-11-14] MEDS ORDERED: oxyCODONE/APAP 5/325 1 TAB TABLET PO PRN (14:00)
[2021-11-14] MEDS ORDERED: MAGNESIUM HYDROXIDE 2,400 MG/30 ML ORAL.SUSP. PO PRN (14:00)
[2021-11-14] MEDS ORDERED: CALCIUM CARBONATE 500 MG TAB.CHEW PO PRN (14:00)
[2021-11-14] MEDS ORDERED: DEXTROSE 50% 25 GM / 50ML DISP.SYRIN. IV PRN (14:00)
[2021-11-14] MEDS ORDERED: NALOXONE 0.4 MG/ML VIAL. IV PRN (14:00)
[2021-11-14] MEDS ORDERED: MAG HYDROX/ALUMINUM HYD/SIMETH 30 ML ORAL.SUSP PO PRN (14:00)
[2021-11-14] MEDS: tiZANidine 4 MG TABLET. PO SCH ×2 (14:00→21:16)
[2021-11-14] MEDS ORDERED: diphenhydrAMINE HCL 25 MG CAPSULE PO PRN (14:00)
[2021-11-14] MEDS ORDERED: ACETAMINOPHEN 325 MG TABLET. PO PRN (14:00)
[2021-11-14] MEDS ORDERED: ONDANSETRON PF 4 MG/2 ML VIAL. IVP PRN (14:00)
[2021-11-14] MEDS ORDERED: 0.9 % SODIUM CHLORIDE 10 ML DISP.SYRIN. IV PRN (14:00)
[2021-11-14] MEDS ORDERED: fentaNYL PF VIAL 100 MCG/2 ML VIAL ONE (14:33)
[2021-11-14] MEDS ORDERED: MORPHINE SULFATE 2 MG/ML INJ. ONE (14:45)
[2021-11-14] MEDS ORDERED: PROCHLORPERAZINE 10 MG/2 ML VIAL. ONE (14:54)
[2021-11-14 15:23] LABS: HEMATOCRIT 36.8 % (36.0-47.0); HEMOGLOBIN 12.2 g/dL (12.0-15.5); RED BLOOD COUNT 4.07 x10^6/uL (3.50-5.40); RED CELL DISTRIBUTION WIDTH 13.1 % (11.5-14.5); WHITE BLOOD COUNT 5.6 x10^3/uL (4.0-11.0)
--- NOTE | 2021-11-14 15:37 | EKG ---
[facility] [address] [place] [address] Test Date: 2021-11-14 Test Time: 14:12:10 Pat Name: PREET SANTOYO Department: Room: [place] [address] Gender: F Property Developer: : [id number] Requested By: ARON BELLO Order Number: [id number] Reading MD: Chandu Lopez MD Measurements Intervals Morrison Rate: 112 P: 24 SD: 148 QRS: -7 QRSD: 138 T: 137 QT: 362 QTc: 496 Interpretive Statements SINUS TACHYCARDIA LBBB NON-SPECIFIC ST/T CHANGES Electronically Signed On 11-14-2021 16:16:05 SEATER GRINDER by Chandu Lopez MD
[2021-11-14 15:53] LABS: ALBUMIN 3.3 g/dL (3.4-5.0); CALCIUM 8.4 mg/dL (8.5-10.1); CREATININE 0.6 mg/dL (0.6-1.0); GFR 99.7; POTASSIUM 3.5 mmol/L (3.5-5.1); TOTAL BILIRUBIN 0.3 mg/dL (0.2-1.0); TOTAL PROTEIN 6.5 g/dL (6.4-8.2)
[2021-11-14] MEDS ORDERED: POTASSIUM CL 20MEQ-0.45% NACL 1,000 ML IV SCH (16:00)
[2021-11-14] MEDS: CALCIUM CARB/VIT D3 500/200 TABLET. PO SCH (17:00)
[2021-11-14] MEDS: ceFAZolin SODIUM IV Push 1 GM VIAL. IVP SCH ×2 (17:30→21:21)
[2021-11-14 19:15] VITALS: BP 121/56
[2021-11-14] MEDS ORDERED: BOSWELLIA SERRA PO SCH (21:00)
[2021-11-14] MEDS ORDERED: GLUCOSAMINE PO SCH (21:00)
[2021-11-14] MEDS ORDERED: D3 PO SCH (21:00)
[2021-11-14] MEDS: DOCUSATE SODIUM 100 MG CAPSULE. PO SCH (21:16)
[2021-11-14] MEDS: fentaNYL PF VIAL 100 MCG/2 ML VIAL IVP PRN ×2 (21:20→21:56)
[2021-11-14 22:10] VITALS: BP 116/56
--- NOTE | 2021-11-14 23:20 | OP ---
DATE OF SURGERY: 11/14/2021 PREOPERATIVE DIAGNOSIS: Foraminal narrowing, right L4-L5 with lumbar radiculopathy. POSTOPERATIVE DIAGNOSIS: Foraminal narrowing, right L4-L5 with lumbar radiculopathy. OPERATIONS PERFORMED: Removal of hardware, L4-L5 right; decompression of the L5 and L4 nerve roots, L4-L5 right; microdiskectomy, L4-L5 right; removal of interbody fusion cage, L4-L5; replacement of hardware, L4-L5; augmentation of fusion with autograft bone; BrainLAB guidance with multimodality monitoring including EMG, SSEPs, motor evoked potentials. Fluoroscopy was used as well as BrainLAB guidance. SURGEON: Albert Graff M.D. BRAILLE TEACHER: JOSE ANGEL Johnston; assisted with the surgery. She assisted with the exposure, the microdecompression, microdiscectomy, removal of hardware, removal of cage, replacement of hardware and closure. OPERATIVE INDICATIONS: The patient about 6 weeks ago underwent lumbar surgery with a wide decompression at L4-5, combined with posterior instrumentation and posterolateral fusion. She developed problems with right leg pain in the early postoperative period, which responded well to oral steroids, but would return and become severe. I repeated her imaging studies and there was foraminal narrowing at L4-L5. I recommended lumbar microsurgery at this level. I spoke with her about the surgery, the risks, technique and expected postoperative course, and she wished to go ahead. DESCRIPTION OF PROCEDURE: Following general endotracheal anesthesia, the patient was positioned prone on Refugio table. Lumbar region prepped and draped in standard fashion. KIEL hose and AV impulse boots were applied for DVT prophylaxis. The microscope was draped. Fluoroscopy was draped and brought into the field. Monitoring was established. Ancef 2 grams was given less than one hour prior to initiation of surgery. Using fluoroscopic guidance, a midline posterior incision was reopened over the L4-L5 interspace. I dissected down through skin and subcutaneous tissue, attached the BrainLAB Star to the spinous process of inferior L5 and initialized BrainLAB system. Using the BrainLAB, then I fully reopened her incision, dissected down, exposed the right-sided lamina, facets, hardware and placed self-retaining retractors. I removed the screws without difficulty. I then began to work through the dense scar and exposed the dura, the L5 root, the L4 root. The L4 root appeared to be compressed by a mass, which was inferior to the disc space and I worked out through this and removed a large fragment of cartilaginous disc material. This markedly decompressed the entire region. I was able to better visualize the L4 root and the L5 root. I did enter into the disc space and reattached to the cage and removed the interbody fusion cage. I then removed disc material and I fully decompressed the entire region. The root was quite free throughout its course. I had some of the bone I obtained with the decompression, I packed into the lateral gutter on the right. I then replaced the screws with larger diameter screws of 7.5 and replaced the kostas. I continued to use the [place] system. I torqued sequentially. I then irrigated with antibiotic solution carefully. I felt that the roots were very free, at the initiation of the procedure, they were not. I then closed the wound in layers with absorbable suture. Skin was closed with robin. ALEJANDRA DR: Yoly TID: [id number] JENNIFER
[2021-11-15] MEDS ORDERED: INFLUENZA VAX SCREEN BY RX. MC PRN (00:30)
[2021-11-15] MEDS: fentaNYL PF VIAL 100 MCG/2 ML VIAL IVP PRN (01:12)
[2021-11-15 03:40] VITALS: BP 139/66
[2021-11-15] MEDS: oxyCODONE/APAP 5/325 1 TAB TABLET PO PRN ×3 (04:06→14:04)
[2021-11-15] MEDS: ceFAZolin SODIUM IV Push 1 GM VIAL. IVP SCH (05:53)
[2021-11-15 07:00] VITALS: BP 134/63
[2021-11-15] MEDS ORDERED: metFORMIN XR 500 MG TAB.ER.24H PO SCH (08:00)
--- NOTE | 2021-11-15 08:00 | NUR ---
Ambulated to bathroom with steady gait with walker. Tolerated it well. Voided without difficulty. Up in chair for breakfast. Cont. monitor.
[2021-11-15] MEDS: DOCUSATE SODIUM 100 MG CAPSULE. PO SCH (08:12)
[2021-11-15] MEDS: CALCIUM CARB/VIT D3 500/200 TABLET. PO SCH (08:13)
[2021-11-15] MEDS: tiZANidine 4 MG TABLET. PO SCH ×2 (08:14→14:00)
[2021-11-15] MEDS ORDERED: COLLAGEN HYDR PO SCH (09:00)
[2021-11-15] MEDS ORDERED: NON FORMULARY ITEM (Ubidecarenone (Co Q-10) 1 CAP) PO SCH (09:00)
[2021-11-15] MEDS ORDERED: VITAMIN B COMPLEX TABLET. PO SCH (09:00)
[2021-11-15] MEDS ORDERED: ASPIRIN CHEWABLE 81 MG TABLET. PO SCH (09:00)
[2021-11-15] MEDS ORDERED: CYANOCOBALAMIN (VITAMIN B-12) 1,000 MCG TABLET. PO SCH (09:00)
[2021-11-15] MEDS ORDERED: ASCORBIC ACID PO SCH (09:00)
[2021-11-15] MEDS ORDERED: CINNAMON BARK PO SCH (09:00)
[2021-11-15] MEDS ORDERED: PIOGLITAZONE 15 MG TABLET. PO SCH (09:00)
[2021-11-15] MEDS ORDERED: CHROMIUM PO SCH (09:00)
[2021-11-15] MEDS ORDERED: EZETIMIBE 10 MG TABLET. PO SCH (09:00)
[2021-11-15] MEDS ORDERED: SERTRALINE 50 MG TABLET. PO SCH (09:00)
[2021-11-15] MEDS ORDERED: ALA PO SCH (09:00)
[2021-11-15] MEDS ORDERED: hydroCHLOROthiazide 12.5 MG CAPSULE PO SCH (09:00)
[2021-11-15] MEDS ORDERED: BERBERINE PO SCH (09:00)
--- NOTE | 2021-11-15 09:13 | DISCH ---
DISCHARGE INSTRUCTIONS Condition on Discharge Condition on Discharge: Stable Activity After Discharge Activity Instructions for Disc: Activity as tolerated, Avoid exertion, Prog ressive ambulation Other activity instructions: wear brace when up Bathing Instructions: Shower-keep dressing dry, No Tub Bath until see Lifting Instructions after Dis: No heavy lifting, No pulling or pushing, Do not lift >10 pounds Exercise Instruction after Dis: Exercise per therapy, Progress as tolerated Driving Instructions after Dis: Do not drive Weight Bearing Status after Di: No restrictions Diet after Discharge Diet after Discharge: Diabetic No Calorie Level Liquid Texture: Thin Liquid Wound Incision Care Wound/Incision Care: Ice to area for comfort, Keep wound/cast CDI, Change dressing Other wound/incision instructi: daily dressing change and as needed, robin Wound Care Equipment: Dressings, Sutures/robin Contacting the DRMargarito after DC Call your doctor for: Concerns you may have Follow-Up Follow up with: Dr. Graff's nurse in 2 weeks [phone] Follow Up With: Dr. Fallon [phone] Treatment/Equipment after DC Adaptive Equipment Issued: Brace/splint, NAVARRO aLncaster MD Nov 15, 2021 09:13
[2021-11-15] MEDS ORDERED: DEXTROSE 50% 25 GM / 50ML DISP.SYRIN. IV PRN (10:00)
[2021-11-15] MEDS ORDERED: INSULIN GLARGINE SYRINGE. SQ ONE (10:00)
[2021-11-15] MEDS ORDERED: FLU VACC QUAD 21-22 (6MOS+) PF 0.5 ML SYRINGE. VAX IM ONE (10:00)
--- NOTE | 2021-11-15 10:07 | PDOC2 ---
CONSULT Date of Consult Date of Consult DATE: 11/15/21 TIME: 09:49 Reason for Consult Reason for Consult: Diabetic control/medical management Referring Physician Referring Physician: Dr. Albert Graff Identification/Chief Complaint Chief Complaint Low back pain Source Source: Chart review, Patient History of Present Illness Reason for Visit: Ms Butler is a 66-year-old female with past medical history type 2 diabetes, osteoarthritis and chronic back pain who underwent L4-5 lumbar fusion August 2021 who was admitted for continued right lower back pain radiating into her hip thigh and groin and into her right foot. Is been having more difficulty with walking and did get some improvement with steroids outpatient and noted on outpatient MRI with L4-5 right foraminal narrowing and has returned for definit david treatment with hardware removal. On 11/14/2021 underwent decompression of the L5 and L4 nerve roots with L4-L5 right; microdiskectomy, and removal of interbody fusion cage, L4-L5; replacement of hardware, L4-L5; augmentation of fusion with autograft bone. Seen post- operatively Day 1. She is currently pain-free. Glucoses in the 200s. She notes she takes metformin and Actos at home and her A1c is around 6.7-6.9 over the last year. She does note she has lispro pen at home. She has no chest pain or shortness of breath no postoperative fevers no cough. She is able to ambulate no problems with urination. No bowel movement since surgery. Past Medical History Endocrine: Diabetes Past Surgical History Past Surgical History Cholecystectomy, tubal ligation, right foot surgery, left knee surgery, cataract surgery, instrumented lumbar fusion L4-5 in 08/2021. Past Surgical History: Cholecystectomy, Tubal Ligation Family History Family History: Diabetes Social History Social History No ALCOHOL: rare Drugs: None Lives: Alone (With 2 cats and 2 dogs has 4 children and 8 grandchildren living locally.) Domestic Violence: Neg Current Medications Current Medications Current Medications Fentanyl Citrate (Fentanyl 2ml Vial) 25 mcg PRN Q5MIN PRN IVP MILD PAIN 1-3; Start 11/14/21 at 06:00; Stop 11/15/21 at 05:59; Status DC Fentanyl Citrate (Fentanyl 2ml Vial) 50 mcg PRN Q5MIN PRN IVP MODERATE PAIN 4-6 Last administered on 11/14/21at 18:30; Start 11/14/21 at 06:00; Stop 11/15/21 at 05:59; Status DC Morphine Sulfate (Morphine Sulfate) 1 mg PRN Q10MIN PRN IVP SEVERE PAIN 7-10; Start 11/14/21 at 06:00; Stop 11/15/21 at 05:59; Status DC Ringer's Solution 1,000 ml @ 30 mls/hr Q24H IV Last administered on 11/14/21at 07:33; Start 11/14/21 at 06:00; Stop 11/14/21 at 17:59; Status DC Hydromorphone HCl (Dilaudid) 0.5 mg PRN Q10MIN PRN IVP SEVERE PAIN 7-10, 2nd C HOICE Last administered on 11/14/21at 15:14; Start 11/14/21 at 06:00; Stop 11/15/21 at 05:59; Status DC Prochlorperazine Edisylate (Compazine) 5 mg PACU PRN PRN IVP NAUSEA, MRX1; Start 11/14/21 at 06:00; Stop 11/15/21 at 05:59; Status DC Cefazolin Sodium/ Dextrose 50 ml @ 100 mls/hr 1X PREOP PRN IV PRIOR TO PROCEDURE Last administered on 11/14/21at 09:30; Start 11/14/21 at 06:00; Stop 11/14/21 at 18:00; Status DC Cefazolin Sodium 1 gm/Sodium Chloride 1,000 ml @ 1,000 mls/hr 1X ONCE IRR Last administered on 11/14/21at 10:05; Start 11/14/21 at 07:00; Stop 11/14/21 at 07:59; Status DC Insulin Human Lispro (HumaLOG VIAL for OP,RR ONLY) 0-10 units PRN Q1HR PRN SQ PER PROTOCOL Last administered on 11/14/21at 07:36; Start 11/14/21 at 07:00; Stop 11/15/21 at 06:59; Status DC Bupivacaine HCl/ Epinephrine Bitart (Sensorcain-Epi 0.5% Kit) 30 ml STK-MED ONCE INJ Last administered on 11/14/21at 10:05; Start 11/14/21 at 10:05; Stop 11/14/21 at 10:15; Status DC Ketorolac Tromethamine (Toradol Im) 60 mg STK-MED ONCE INJ Last administered on 11/14/21at 10:05; Start 11/14/21 at 10:05; Stop 11/14/21 at 10:15; Status DC Gelatin (Gelfoam Size 100) 1 each STK-MED ONCE TP Last administered on 11/14/21at 10:05; Start 11/14/21 at 10:05; Stop 11/14/21 at 10:15; Status DC Thrombin 20,000 unit STK-MED ONCE TP Last administered on 11/14/21at 10:05; Start 11/14/21 at 10:05; Stop 11/14/21 at 10:15; Status DC Aspirin (Aspirin Chewable) 81 mg DAILY PO Last administered on 11/15/21at 08:13; Start 11/15/21 at 09:00 EZETIMIBE (Zetia) 10 mg DAILY PO Last administered on 11/15/21at 08:13; Start 11/15/21 at 09:00 Hydrochlorothiazide (Microzide) 12.5 mg DAILY PO Last administered on 11/15/21at 08:14; Start 11/15/21 at 09:00 Metformin HCl (Glucophage Xr) 500 mg BIDWMEALS PO Last administered on 11/15/21at 08:13; Start 11/15/21 at 08:00 Sertraline HCl (Zoloft) 50 mg DAILY PO Last administered on 11/15/21at 08:13; S tart 11/15/21 at 09:00 Tizanidine HCl (Zanaflex) 4 mg TID PO Last administered on 11/15/21at 08:14; Start 11/14/21 at 14:00 Vitamin B Complex (Gene B) 1 tab DAILY PO Last administered on 11/15/21at 08:12; Start 11/15/21 at 09:00 Non-Formulary Medication (Ascorbic Acid/ Collagen Hydr (Collagen Plus Vit C Capsule)) 1 each DAILY PO ; Start 11/15/21 at 09:00; Status UNV Calcium/Vitamin D (Oscal D 500mg/ 200uts) 1 tab BIDWMEALS PO Last administered on 11/15/21at 08:13; Start 11/14/21 at 17:00 Non-Formulary Medication (Cinnamon Bark/ Chromium/Ala (Cinnamon Alpha Lipoic Acid Cap)) 1 each DAILY PO ; Start 11/15/21 at 09:00; Status UNV Cyanocobalamin (Vitamin B-12) 5,000 mcg DAILY PO Last administered on 11/15/21at 08:13; Start 11/15/21 at 09:00 Non-Formulary Medication (Glucosamine/D3/ Boswellia Anne (Osteo Bi-Flex Caplet)) 3 each BID PO ; Start 11/14/21 at 21:00; Status UNV Pioglitazone HCl (Actos) 30 mg DAILY PO Last administered on 11/15/21at 08:13; Start 11/15/21 at 09:00 Non-Formulary Medication (Ubidecarenone (Co Q-10)) 1 cap DAILY PO ; Start 11/15/21 at 09:00; Status UNV Non-Formulary Medication ([Berberine] ) 1 tab DAILY PO ; Start 11/15/21 at 09:00; Status UNV Fentanyl Citrate (Fentanyl 2ml Vial) 50 mcg PRN Q2HR PRN IVP PAIN Last administered on 11/15/21at 01:12; Start 11/14/21 at 14:00 Dextrose (Dextrose 50%-Water Syringe) 12.5 gm PRN Q15MIN PRN IV SEE COMMENTS; Start 11/14/21 at 14:00 Acetaminophen (Tylenol) 650 mg PRN Q6HRS PRN PO MILD PAIN / TEMP > 100.3'F; Start 11/14/21 at 14:00 Al Hydroxide/Mg Hydroxide (Mylanta Plus Xs) 30 ml PRN Q3HRS PRN PO HEARTBURN / GAS; Start 11/14/21 at 14:00 Calcium Carbonate/ Glycine (Tums) 500 mg PRN Q3HRS PRN PO INDIGESTION; Start 11/14/21 at 14:00 Diphenhydramine HCl (Benadryl) 25 mg PRN Q6HRS PRN PO ITCHING; Start 11/14/21 at 14:00 Naloxone HCl (Narcan) 0.1 mg PRN Q2MIN PRN IV SEE COMMENTS; Start 11/14/21 at 14:00 Sodium Chloride (Normal Saline Flush) 3 ml QSHIFT PRN IV AFTER MEDS AND BLOOD DRAWS; Start 11/14/21 at 14:00 Potassium Chloride/Sodium Chloride 1,000 ml @ 75 mls/hr [id number] IV Last administered on 11/14/21at 21:17; Start 11/14/21 at 16:00 Oxycodone/ Acetaminophen (Percocet 5/325) 1 tab PRN Q4HRS PRN PO MILD PAIN, 1ST CHOICE; Start 11/14/21 at 14:00 Oxycodone/ Acetaminophen (Percocet 5/325) 2 tab PRN Q4HRS PRN PO MODERATE PAIN, SEVERE PAIN Last administered on 11/15/21at 04:06; Start 11/14/21 at 14:00 Docusate Sodium (Colace) 100 mg BID PO Last administered on 11/15/21at 08:12; Start 11/14/21 at 21:00 Magnesium Hydroxide (Milk Of Magnesia) 2,400 mg PRN Q12HR PRN PO CONSTIPATION; Start 11/14/21 at 14:00 Ondansetron HCl (Zofran) 4 mg PRN Q6HRS PRN IVP NAUESA, 1ST CHOICE; Start at 14:00 Cefazolin Sodium (Ancef) 1 gm Q8HRS IVP Last administered on 11/15/21at 05:53; Start 11/14/21 at 17:30; Stop 11/15/21 at 06:02; Status DC Gelatin (Gelfoam Size 100) 1 each STK-MED ONCE .ROUTE ; Start 11/14/21 at 06:32; Stop 11/14/21 at 15:08; Status DC Bupivacaine HCl/ Epinephrine Bitart (Sensorcain-Epi 0.5% Kit) 30 ml STK-MED ONCE .ROUTE ; Start 11/14/21 at 06:32; Stop 11/14/21 at 15:08; Status DC Ketorolac Tromethamine (Toradol Im) 60 mg STK-MED ONCE .ROUTE ; Start 11/14/21 at 06:32; Stop 11/14/21 at 15:08; Status DC Thrombin 20,000 unit STK-MED ONCE TP ; Start 11/14/21 at 06:32; Stop 11/14/21 at 15:08; Status DC Epinephrine HCl (Adrenalin) 30 mg STK-MED ONCE .ROUTE ; Start 11/14/21 at 07:22; Stop 11/14/21 at 15:09; Status DC Propofol (Diprivan) 200 mg STK-MED ONCE IV ; Start 11/14/21 at 05:54; Stop 11/14/21 at 15:11; Status DC Lidocaine HCl (Lidocaine Pf 2% Vial) 5 ml STK-MED ONCE .ROUTE ; Start 11/14/21 at 05:54; Stop 11/14/21 at 15:11; Status DC Phenylephrine HCl (Murtaza-Synephrine Inj) 10 mg STK-MED ONCE .ROUTE ; Start 11/14/21 at 05:54; Stop 11/14/21 at 15:11; Status DC Propofol 50 ml @ As Directed STK-MED ONCE IV ; Start 11/14/21 at 05:54; Stop 11/14/21 at 15:11; Status DC Glycopyrrolate (Robinul) 1 mg STK-MED ONCE .ROUTE ; Start 11/14/21 at 05:54; Stop 11/14/21 at 15:11; Status DC Dexamethasone Sodium Phosphate (Decadron) 4 mg STK-MED ONCE .ROUTE ; Start 11/14/21 at 05:54; Stop 11/14/21 at 15:11; Status DC Sevoflurane (Ultane) 90 ml STK-MED ONCE IH ; Start 11/14/21 at 05:54; Stop 11/14/21 at 15:11; Status DC Succinylcholine Chloride (Anectine) 200 mg STK-MED ONCE .ROUTE ; Start 11/14/21 at 05:55; Stop 11/14/21 at 15:11; Status DC Rocuronium [place] (Zemuron) 50 mg STK-MED ONCE .ROUTE ; Start 11/14/21 at 05:55; Stop 11/14/21 at 15:11; Status DC Neostigmine [place] (Neostigmine Methylsulfate) 5 mg STK-MED ONCE .ROUTE ; Start 11/14/21 at 05:55; Stop 11/14/21 at 15:11; Status DC Remifentanil HCl (Ultiva) 1 mg STK-MED ONCE IV ; Start 11/14/21 at 05:56; Stop 11/14/21 at 15:11; Status DC Hydrocortisone Sodium Succinate (Solu-CORTEF) 100 mg STK-MED ONCE .ROUTE ; Start 11/14/21 at 07:32; Stop 11/14/21 at 15:15; Status DC Ketamine HCl (Ketamine) 50 mg STK-MED ONCE .ROUTE ; Start 11/14/21 at 08:07; Stop 11/14/21 at 15:15; Status DC Propofol 50 ml @ As Directed STK-MED ONCE IV ; Start 11/14/21 at 09:19; Stop 11/14/21 at 15:16; Status DC Propofol 50 ml @ As Directed STK-MED ONCE IV ; Start 11/14/21 at 09:19; Stop 11/14/21 at 15:16; Status DC Remifentanil HCl (Ultiva) 1 mg STK-MED ONCE IV ; Start 11/14/21 at 10:20; Stop 11/14/21 at 15:17; Status DC Hydromorphone HCl (Dilaudid) 2 mg STK-MED ONCE .ROUTE ; Start 11/14/21 at 11:37; Stop 11/14/21 at 15:17; Status DC Fentanyl Citrate (Fentanyl 2ml Vial) 100 mcg STK-MED ONCE .ROUTE ; Start 11/14/21 at 14:33; Stop 11/14/21 at 15:18; Status DC Morphine Sulfate (Morphine Sulfate) 2 mg STK-MED ONCE .ROUTE ; Start 11/14/21 at 14:45; Stop 11/14/21 at 15:18; Status DC Hydromorphone HCl (Dilaudid) 2 mg STK-MED ONCE .ROUTE ; Start 11/14/21 at 14:48; Stop 11/14/21 at 15:18; Status DC Prochlorperazine Edisylate (Compazine) 10 mg STK-MED ONCE .ROUTE ; Start 11/14/21 at 14:54; Stop 11/14/21 at 15:18; Status DC Hydromorphone HCl (Dilaudid) 2 mg STK-MED ONCE .ROUTE ; Start 11/14/21 at 15:12; Stop 11/14/21 at 15:18; Status DC Info (FLU VACCINE SCREEN per RX) 1 each PRN DAILY PRN MC SEE COMMENTS; Start 11/15/21 at 00:30; Status Cancel Influenza Virus Vaccine Quadrival (Flulaval Quad Syringe) 0.5 ml ONCE ONCE VAX IM ; Start 11/15/21 at 10:00; Stop 11/15/21 at 10:01 Active Scripts Active Percocet 5-325 Mg Tablet (Oxycodone/Acetaminophen) 1 Each Tablet 1 Tab PO PRN Q4HRS PRN Reported Zetia (Ezetimibe) 10 Mg Tablet 1 Tab PO DAILY 30 Days Vitamin B12 (Cyanocobalamin (Vitamin B-12)) 5,000 Mcg Tab.rapdis 1 Tab PO DAILY 30 Days Super Calcium 600 + D3 Tablet (Calcium Carbonate/Vitamin D3) 1 Each Tablet 1 Tab PO BID 30 Days Cinnamon Alpha Lipoic Acid Cap (Cinnamon Bark/Chromium/Ala) 1 Each Capsule 1 Each PO DAILY B Complex (Vitamin B Complex) 1 Each Tablet 1 Tab PO DAILY 30 Days Collagen Plus Vit C Capsule (Ascorbic Acid/Collagen Hydr) 1 Each Capsule 1 Each PO DAILY Co Q-10 (Ubidecarenone) 200 Mg Capsule 1 Cap PO DAILY 30 Days [Berberine] 1 Tab PO DAILY Zanaflex (Tizanidine Hcl) 4 Mg Tablet 1 Tab PO TID 30 Days Hydrochlorothiazide Capsule (Hydrochlorothiazide) 12.5 Mg Capsule 12.5 Mg PO DAILY Actos (Pioglitazone Hcl) 30 Mg Tablet 1 Tab PO DAILY 30 Days Metformin Hcl Er (Metformin Hcl) 500 Mg Tab.er.24h 500 Mg PO BIDWMEALS Osteo Bi-Flex Caplet (Glucosamine/D3/Boswellia Anne) 1 Each Tablet 3 Each PO BID Aspirin 81 Mg Tab.chew 1 Tab PO DAILY Zoloft (Sertraline Hcl) 50 Mg Tablet 1 Tab PO DAILY Allergies Allergies: Coded Allergies: No Known Drug Allergies (Unverified , 11/10/21) ROS General: No: Chills, Night Sweats, Fatigue, Malaise, Appetite, Other PSYCHOLOGICAL ROS: No: Anxiety, Behavioral Disorder, Concentration difficultie, Decreased libido, Depression, Disorientation, Hallucinations, Hostility, Irritablity, Memory difficulties, Mood Swings, Obsessive thoughts, Physical abuse, Sexual abuse, Sleep disturbances, Suicidal ideation, Other Eyes: No Blurry vision, No Decreased vision, No Double vision, No Dry eyes, No Excessive tearing, No Eye Pain, No Itchy Eyes, No Loss of vision, No Photophobia, No Scotomata, No Uses contacts, No Uses glasses, No Other HEENT: No: Heacaches, Visual Changes, Hearing change, Nasal congestion, Nasal discharge, Oral lesions, Sinus pain, Sore Throat, Epistaxis, Sneezing, Snoring, Tinnitus, Vertigo, Vocal changes, Other ALLERGY AND IMMUNOLOGY: No: Hives, Insect Bite Sensitivity, Itchy/Watery Eyes, Nasal Congestion, Post Nasal Drip, Seasonal Allergies, Other Hematological and Lymphatic: No: Bleeding Problems, Blood Clots, Blood Transfusions, Brusing, Night Sweats, Pallor, Swollen Lymph Nodes, Other ENDOCRINE: No: Breast Changes, Galactorrhea, Hair Pattern Changes, Hot Flashes, Malaise/lethargy, Mood Swings, Palpitations, Polydipsia/polyuria, Skin Changes, Temperature Intolerance, Unexpected Weight Changes, Other Breast: No New/Changing Breast Lumps, No Nipple changes, No Nipple discharge, No Other Respiratory: No: Cough, Hemoptysis, Orthopnea, Pleuritic Pain, Shortness of breath, SOB with excertion, Sputum Changes, Stridor, Tachypnea, Wheezing, Other Cardiovascular: No Chest Pain, No Palpitations, No Orthopnea, No Paroxysmal Noc. Dyspnea, No Edema, No Lt Headedness, No Other Gastrointestinal: No Nausea, No Vomiting, No Abdominal Pain, No Diarrhea, No Constipation, No Melena, No Hematochezia, No Other Genitourinary: No Dysuria, No Frequency, No Incontinence, No Hematuria, No Retention, No Discharge, No Urgency, No Pain, No Flank Pain, No Other, No , No , No , No , No , No , No Musculoskeletal: No Gait Disturbance, No Joint Pain, No Joint Stiffness, No Joint Swelling, No Muscle Pain, No Muscular Weakness, No Pain In:, No Swelling In:, No Other Neurological: No Behavorial Changes, No Bowel/Bladder ControlChng, No Confusion, No Dizziness, No Gait Disturbance, No Headaches, No Impaired Coord/balance, No Memory Loss, No Numbness/Tingling, No Seizures, No Speech Problems, No Tremors, No Visual Changes, No Weakness, No Other Skin: No Dry Skin, No Eczema, No Hair Changes, No Lumps, No Mole Changes, No Mottling, No Nail Changes, No Pruritus, No Rash, No Skin Lesion Changes, No Other, No Acne Physical Exam General: Alert, Oriented X3, Cooperative, No acute distress HEENT: Atraumatic, PERRLA, EOMI, Mucous membr. moist/pink Lungs: Clear to auscultation, Normal air movement Heart: Regular rate, Normal S1, Normal S2, No murmurs Abdomen: Normal bowel sounds, Soft, No tenderness, No hepatosplenomegaly, No masses Extremities: No clubbing, No cyanosis, No edema, Normal pulses, No tenderness/swelling Skin: No rashes, No breakdown, Other (Lower back surgical dressing clean, dry,intact) Neuro: Normal gait, Normal speech, Strength at 5/5 X4 ext, Normal tone, Sensation intact, Cranial nerves 3-12 NL, Reflexes 2+ Psych/Mental Status: Mental status NL, Mood NL MUSCULOSKELETAL: No joint tenderness, No deformity, No swelling, No muscular tenderness noted, Full range of motion without pain Vitals VITALS Vital Signs Date Time Temp Pulse Resp B/P (MAP) Pulse Ox O2 Delivery O2 Flow Rate FiO2 11/15/21 07:00 98.7 94 20 134/63 (86) 97 Nasal Cannula 2.0 98.7 Labs Labs Laboratory Tests Test 11/14/21 06:49 11/14/21 14:04 11/14/21 14:15 11/14/21 21:01 Glucose (Fingerstick) 273 mg/dL (70-99) 216 mg/dL (70-99) 290 mg/dL (70-99) White Blood Count 5.6 x10^3/uL (4.0-11.0) Red Blood Count 4.07 x10^6/uL (3.50-5.40) Hemoglobin 12.2 g/dL (12.0-15.5) Hematocrit 36.8 % (36.0-47.0) Mean Corpuscular Volume 90 fL (79-100) Mean Corpuscular Hemoglobin 30 pg (25-35) Mean Corpuscular Hemoglobin Concent 33 g/dL (31-37) Red Cell Distribution Width 13.1 % (11.5-14.5) Platelet Count 257 x10^3/uL (140-400) Sodium Level 138 mmol/L (136-145) Potassium Level 3.5 mmol/L (3.5-5.1) Chloride Level 99 mmol/L (98-107) Carbon Dioxide Level 26 mmol/L (21-32) Anion Gap 13 (6-14) Blood Urea Nitrogen 15 mg/dL (7-20) Creatinine 0.6 mg/dL (0.6-1.0) Estimated GFR (Cockcroft-Gault) 99.7 BUN/Creatinine Ratio 25 (6-20) Glucose Level 242 mg/dL (70-99) Calcium Level 8.4 mg/dL (8.5-10.1) Total Bilirubin 0.3 mg/dL (0.2-1.0) Aspartate Amino Transf (AST/SGOT) 34 U/L (15-37) Alanine Aminotransferase (ALT/SGPT) 37 U/L (14-59) Alkaline Phosphatase 88 U/L (46-116) Total Protein 6.5 g/dL (6.4-8.2) Albumin 3.3 g/dL (3.4-5.0) Albumin/Globulin Ratio 1.0 (1.0-1.7) Test 11/15/21 07:38 Glucose (Fingerstick) 249 mg/dL (70-99) Laboratory Tests Test 11/14/21 14:04 11/14/21 14:15 11/14/21 21:01 11/15/21 07:38 Glucose (Fingerstick) 216 mg/dL (70-99) 290 mg/dL (70-99) 249 mg/dL (70-99) White Blood Count 5.6 x10^3/uL (4.0-11.0) Red Blood Count 4.07 x10^6/uL (3.50-5.40) Hemoglobin 12.2 g/dL (12.0-15.5) Hematocrit 36.8 % (36.0-47.0) Mean Corpuscular Volume 90 fL (79-100) Mean Corpuscular Hemoglobin 30 pg (25-35) Mean Corpuscular Hemoglobin Concent 33 g/dL (31-37) Red Cell Distribution Width 13.1 % (11.5-14.5) Platelet Count 257 x10^3/uL (140-400) Sodium Level 138 mmol/L (136-145) Potassium Level 3.5 mmol/L (3.5-5.1) Chloride Level 99 mmol/L (98-107) Carbon Dioxide Level 26 mmol/L (21-32) Anion Gap 13 (6-14) Blood Urea Nitrogen 15 mg/dL (7-20) Creatinine 0.6 mg/dL (0.6-1.0) Estimated GFR (Cockcroft-Gault) 99.7 BUN/Creatinine Ratio 25 (6-20) Glucose Level 242 mg/dL (70-99) Calcium Level 8.4 mg/dL (8.5-10.1) Total Bilirubin 0.3 mg/dL (0.2-1.0) Aspartate Amino Transf (AST/SGOT) 34 U/L (15-37) Alanine Aminotransferase (ALT/SGPT) 37 U/L (14-59) Alkaline Phosphatase 88 U/L (46-116) Total Protein 6.5 g/dL (6.4-8.2) Albumin 3.3 g/dL (3.4-5.0) Albumin/Globulin Ratio 1.0 (1.0-1.7) Assessment/Plan Assessment/Plan A/P: Low back pain - radicular in nature down right leg with possible foramen occlusion l-4-5. S/p surgical intervention, pain free DM2 -on Actos and metformin. Given that she is on Medrol will give one-time 10 units Lantus and sliding scale for today. May be beneficial while on steroids take insulin therapy for 1 week. Has lost prior to given scale insulin Overweight - counseled on lifestyle modification. FEN - ADA diet PPX - SCDs FULL CODE Dispo -can discharge at discretion of neurosurgery. Thank you for the consult can call [phone] for any questions or concerns MARSHALL FIGUEROA MD Nov 15, 2021 10:06
[2021-11-15 11:00] VITALS: BP 100/57
[2021-11-15] MEDS ORDERED: INSULIN LISPRO 300 UNITS/3 ML VIAL. SQ SCH (12:00)
--- NOTE | 2021-11-15 12:17 | PDOC ---
KIET LARA GRADUATE TEACHER EDUCATION 11/15/21 1217: CARDIO Progress Notes Date and Time Date of Service 11/15/21 Time of Evaluation 1220 Subjective Subjective: No Chest Pain, No shortness of breath, No Palpitations Vitals Vitals Vital Signs Date Time Temp Pulse Resp B/P (MAP) Pulse Ox O2 Delivery O2 Flow Rate FiO2 11/15/21 11:54 Room Air 11/15/21 11:00 98.3 90 20 100/57 (71) 95 2.0 98.3 Weight Weight [ ] Input and Output Intake and Output Intake and Output 11/15/21 06:59 Intake Total 1220 ml Output Total 250 ml Balance 970 ml Intake Oral 1220 ml Output Urine Total 200 ml Estimated Blood Loss 50 ml Laboratory Labs Laboratory Tests Test 11/14/21 14:04 11/14/21 14:15 11/14/21 21:01 11/15/21 07:38 Glucose (Fingerstick) 216 mg/dL (70-99) 290 mg/dL (70-99) 249 mg/dL (70-99) White Blood Count 5.6 x10^3/uL (4.0-11.0) Red Blood Count 4.07 x10^6/uL (3.50-5.40) Hemoglobin 12.2 g/dL (12.0-15.5) Hematocrit 36.8 % (36.0-47.0) Mean Corpuscular Volume 90 fL (79-100) Mean Corpuscular Hemoglobin 30 pg (25-35) Mean Corpuscular Hemoglobin Concent 33 g/dL (31-37) Red Cell Distribution Width 13.1 % (11.5-14.5) Platelet Count 257 x10^3/uL (140-400) Sodium Level 138 mmol/L (136-145) Potassium Level 3.5 mmol/L (3.5-5.1) Chloride Level 99 mmol/L (98-107) Carbon Dioxide Level 26 mmol/L (21-32) Anion Gap 13 (6-14) Blood Urea Nitrogen 15 mg/dL (7-20) Creatinine 0.6 mg/dL (0.6-1.0) Estimated GFR (Cockcroft-Gault) 99.7 BUN/Creatinine Ratio 25 (6-20) Glucose Level 242 mg/dL (70-99) Calcium Level 8.4 mg/dL (8.5-10.1) Total Bilirubin 0.3 mg/dL (0.2-1.0) Aspartate Amino Transf (AST/SGOT) 34 U/L (15-37) Alanine Aminotransferase (ALT/SGPT) 37 U/L (14-59) Alkaline Phosphatase 88 U/L (46-116) Total Protein 6.5 g/dL (6.4-8.2) Albumin 3.3 g/dL (3.4-5.0) Albumin/Globulin Ratio 1.0 (1.0-1.7) Test 11/15/21 11:38 Glucose (Fingerstick) 239 mg/dL (70-99) Physical Exam HEENT: Neck Supple W Full Motion Chest: Symmetric LUNGS: Clear to Auscultation Heart: RRR Abdomen: Soft N/T Extremities: No Edema Neurology: alert, oriented, follow commands Assessment Assessment 1. Lumbar radiculopathy s/p surgical intervention 2. Transient LBBB, arrhythmia; post-operative. resolved 3. Hypertension; controlled 4. Diabetes, II Recommendations Outpatient ischemic evaluation as arranged Follow up in our office with Dr. Lopez as scheduled Okay to discharge from a CV standpoint. Justicifation of Admission Dx: Justifications for Admission: Justification of Admission Dx: Yes Comments: cardiac arrhythmias, LBBB Lumbar radiculopathy s/p surgical intervention MARTA LOPEZ MD 11/16/21 1840: CARDIO Progress Notes Plan Plan Late entry for 11/15/2021 Patient seen and examined. Agree with above nurse practitioner note Supportive care. KIET LARA APRN Nov 15, 2021 12:17 MARTA LOPEZ MD Nov 16, 2021 18:40
--- NOTE | 2021-11-15 12:44 | CONS ---
DATE OF CONSULTATION: 11/14/2021 REASON FOR CONSULTATION: Arrhythmia. HISTORY OF PRESENT ILLNESS: The patient is a pleasant 66-year-old woman who is well known to our service, who comes into the hospital for a planned lumbar fusion surgery with Dr. Graff. Intraoperatively towards the end of her surgery, she had frequent PVCs and had transient left bundle branch block and Cardiology was asked to evaluate her. After the patient was awakened from anesthesia and discussing with her, she denies any new specific cardiovascular issues. She was actually seen in the office approximately 8 months ago and at that time was doing fairly well from her frequent PVCs and PACs. She did not have any other specific cardiac limitations. She has been quite active at home, otherwise. PAST MEDICAL HISTORY: Notable for, 1. Type 2 diabetes. 2. Depression. 3. Cholecystectomy. 4. Tubal ligation bilaterally. 5. Bilateral cataract removal. FAMILY HISTORY: Noncontributory. SOCIAL HISTORY: Denies any alcohol, tobacco or illicit drug use. ALLERGIES: No known drug allergies. CURRENT CARDIOVASCULAR MEDICATIONS: 1. Metoprolol succinate 25 mg daily. 2. Aspirin 81 mg daily. REVIEW OF SYSTEMS: Negative for 10 out of 14 systems reviewed, unless otherwise mentioned above in HPI. PHYSICAL EXAMINATION: VITAL SIGNS: Afebrile, heart rate 110, respiratory rate 14, pulse ox 98% on 2 liters. GENERAL: She was alert and oriented, in mild distress from her surgical incisional site pain. HEART: Tones were regular. LUNGS: Clear to auscultation anteriorly. ABDOMEN: Soft, nontender, nondistended. EXTREMITIES: No clubbing, cyanosis or edema. NEUROLOGIC: No obvious focal deficits. DIAGNOSTIC STUDIES: EKG demonstrates sinus rhythm with a left bundle branch block. Cardiac evaluation in the past revealed a normal echocardiogram in 01/2021. Telemetry reveals sinus rhythm with intermittent bigeminy, although it appears to be an intermittent conduction deficit rather than true PVCs. IMPRESSION: Transient left bundle-branch block and arrhythmia, likely in the setting of postoperative pain and other issues. No concern for any significant ischemia. RECOMMENDATIONS: At this present time, we will plan for continued monitoring without any aggressive intervention. The patient's laboratory studies including CBC, BMP and electrolytes were grossly unremarkable. Her potassium was slightly decreased and we will replete this. Otherwise, supportive care for now. Continue close monitoring. We will follow along closely. Thank you for this consultation. PSK/AWILDA DR: Russell TID: [phone]
--- NOTE | 2021-11-15 14:18 | NUR ---
SS following for discharge planning. SS reviewed pt chart and discussed with pt RN. Pt is from home and is currently on room air. Pt had surgery on 11/14/2021. Discharge order on the chart for home with self care. Pt's family to provide transportation to home.
--- NOTE | 2021-11-15 14:58 | DS ---
DATE OF DISCHARGE: 11/15/2021 DISCHARGE DIAGNOSIS: Foraminal narrowing right L4-5 with lumbar radiculopathy. OPERATIONS PERFORMED: Removal of hardware, L4-5 right; decompression of the L5 and L4 nerve roots, L4-5 right; microdiskectomy L4-5 right; removal of interbody fusion cage, L4-5; placement of hardware, L4-5; augmentation of fusion with autograft bone. HISTORY OF PRESENT ILLNESS: The patient about 6 weeks ago underwent lumbar surgery with a wide decompression at L4-5, combined with posterior instrumentation and posterolateral fusion. She developed problems with right leg pain early in the postoperative period, which responded well to oral steroids, but then returned and became severe. I repeated her imaging studies and there was foraminal narrowing at L4-5. I recommended lumbar microsurgery at this level. I spoke with her about the surgery, the risk and the technique and the expected postoperative course. She wished to go ahead. HOSPITAL COURSE: She was admitted to the floor postoperatively where she has done well. She has been up ambulating in the room and in the halls. Physical therapy was initiated and instruction was given to her regarding her activities. She was evaluated by Cardiology as well. Her right leg pain has resolved. She is in good condition to discharge home. DISCHARGE MEDICATIONS: She will resume her medications per the MRAD. DISCHARGE INSTRUCTIONS: She was instructed regarding incision care, activity restrictions and expectations for the next several weeks. She will follow up as scheduled with Cardiology. She will follow up with her primary care doctor. She will follow up with her icer machine operator regarding her blood sugars. She will follow up with us in 2 weeks. She does understand to call us with any questions or concerns prior to that. PARISH DR: Mariza TID: [id number] [facility]
--- NOTE | 2021-11-15 15:10 | NUR ---
Discharge instructions given. Answered questions and concerns. Verbalized understanding. Extra dressings given. Pt discharge home escorted out by w/c and accompanied by daughter.
--- NOTE | 2021-11-17 16:08 | PATHOLOGY ---
[facility] Accession Number: [id number] . 01 Material submitted: . vertebral column - LUMBAR DECOMPRESSION AND DISC . 01 Clinical history: . LUMBAR RADICULOPATHY, STENOSIS REMOVE LUMBAR HARDWARE L4-5 LUMBAR MICRODECOMPRESSION/LAMINECTOMY L4-5 REPLACE LUMBAR HARDWARE, POSTERIOR LATERAL FUSION L4-5 . 02 Diagnosis: Segments of fibrocartilaginous and skeletal muscle tissue and bone, lumbar decompression and disc: - Degenerative changes of fibrocartilaginous tissue with focal hemorrhage and fibrinous exudate, mild acute and chronic inflammation, and focal scarring and foreign body giant cell reaction. (JPM:bee; 11/17/2021) QMS 11/17/2021 0838 Local . 02 Comment: There is no evidence of an acute suppurative inflammatory process or malignancy. (JPM:bee; 11/17/2021) . 02 Electronically signed: . Vitaly Luong MD, Pathologist NPI- [id number] . 01 Gross description: . The specimen is received in formalin, labeled "Luba Butler, lumbar decompression and disc" and consists of multiple esquivel-red rubbery and gritty soft tissues and bone, aggregating 3.9 x 2.5 x 0.9 cm. Hospital Plan Administrator sections are submitted in A1 following decalcification. ([place]; 11/14/2021) DKA/DKA 11/17/2021 0836 Local . 02 Pathologist provided ICD-10: M51.36 . 02 CPT . 101089, [id number] Specimen Comment: A courtesy copy of this report has been sent to [phone] Specimen Comment: Report sent to Specimen Comment: A duplicate report has been generated due to demographic updates. Performed at: 01 [facility] [address] [facility] [address], [place] [id number] MD Everardo Salter MD Phone: [phone] Performed at: 02 [facility] [address] [place] [id number] MD Vitaly Luong MD Phone: [phone]
== END 2021-11-15 15:10 | disposition home or self-care (01) | DRG 460 ==
LOC: OPSVCIP 06:13 → 6 SOUTH 17:41
PROVIDERS: ADMIT Neurological Surgery; ATTEND Neurological Surgery
PROC: 0SB20ZZ Excision of Lumbar Vertebral Disc, Open Approach (ICD-10-PCS; 2021-11-14)
PROC: 01NB0ZZ Release Lumbar Nerve, Open Approach (ICD-10-PCS; 2021-11-14)
PROC: 0SP00AZ Removal of Interbody Fusion Device from Lumbar Vertebral Joint, Open Approach (ICD-10-PCS; 2021-11-14)
PROC: 4A11X4G Monitoring of Peripheral Nervous Electrical Activity, Intraoperative, External Approach (ICD-10-PCS; 2021-11-14)
PROC: 0SG0071 Fusion of Lumbar Vertebral Joint with Autologous Tissue Substitute, Posterior Approach, Posterior Column, Open Approach (ICD-10-PCS; principal; 2021-11-14 08:30)
DX: M48.061 Spinal stenosis, lumbar region without neurogenic claudication (principal); M54.16 Radiculopathy, lumbar region; Z83.3 Family history of diabetes mellitus; I44.7 Left bundle-branch block, unspecified; I10 Essential (primary) hypertension; E11.9 Type 2 diabetes mellitus without complications; E66.3 Overweight; F32.A Depression, unspecified; G89.29 Other chronic pain; M19.90 Unspecified osteoarthritis, unspecified site; Z90.49 Acquired absence of other specified parts of digestive tract; Z98.51 Tubal ligation status; Z68.32 Body mass index [BMI] 32.0-32.9, adult
CPT/HCPCS: 36415; 72131; 76000; 80053; 82962; 85027; 86850; 86900; 86901; 88304; 88311; 93005; A4222; A4223; A4314; A4364; A4556; A4930; A6254; A6257; A6258; C1713; J0171; J0330; J0690; J1100; J1170; J1720; J1815; J1885; J2370; J2704; J2710; J3010; J3480; J3490; J7030; J7120; 97116-GP; 97530-GP; G0378

== ENCOUNTER → 2021-12-16 | Outpatient (CLI) | payer MEDICARE ==
[~2021-12-16] MED LIST changes: -DEXAMETHASONE SOD PHOS 4 MG/ML VIAL ONE; -EMPA10TA PO; +EMPA10TA3 PO; -GLYCOPYRROLATE 1 MG/5 ML VIAL. ONE; -HYDROmorphone 2 MG/ML INJ. IVP PRN; -IV RINGERS,LACTATED 1000ML 1,000 ML IV SCH; -LIDOCAINE 2% PF 5 ML VIAL. ONE; -MORPHINE SULFATE 2 MG/ML INJ. IVP PRN; -NEOSTIGMINE METHYLSULFATE 5 MG/5 ML SYRINGE. ONE; -PHENYLEPHRINE 10 MG/ML VIAL. ONE; -PROCHLORPERAZINE 10 MG/2 ML VIAL. IVP PRN; -PROPOFOL 10 MG/ML (20ML) VIAL. IV ONE; -PROPOFOL 50 ML IV ONE; +REGADENOSON 0.4 MG/5 ML DISP.SYRIN. IV ONE; -REMIFENTANIL 1 MG VIAL. IV ONE; -ROCURONIUM 50 MG/5 ML VIAL. ONE; -SEVOFLURANE > 120 MINUTES. IH ONE; -SUCCINYLCHOLINE 200 MG/10 ML VIAL. ONE; -fentaNYL PF VIAL 100 MCG/2 ML VIAL IVP PRN
--- NOTE | 2021-12-16 15:26 | RAD ---
MR#: [id number] Date of Study: 12/16/2021 Ordering Physician: MARTA LOPEZ, Referring Physician: JENNIFER RIVERO Tech: PORTIA Vale APPROVED REPORT Test Type: Pharmacological Stress Nurse/Tech: Alison Vidal RN Test Indications: Heart Block after back surgery Cardiac History: Diabetes Medications: See Electronic Medical Record Medical History: See Electronic Medical Record Resting ECG: SR Resting Heart Rate: 88 bpm Resting Blood Pressure: 149/70mmHg Pretest Chest Pain: No chest pain Nurse/Tech Notes S1,S2 and lungs clear to auscultation. Consent: The procedure was explained to the patient in lay terms. Informed consent was witnessed. Uche eout was entered into [employer]. History and Stress Test performed by PORTIA Vale Pharm. Details Pharmacologic stress testing was performed using 0.4mg per 5ml of regadenoson given intravenously ove r 7-10 seconds. Stress Symptoms No chest pain or symptoms. POST EXERCISE Reason for Termination: Infusion complete Target HR: No Max HR: 113 bpm 86% of Maximum Predicted HR: 130 bpm Max Blood Pressure: 149/58mmHg Blood Pressure response to exercise: Normal blood pressure response during stress. Heart Rate response to exercise: WNL Chest Pain: No. Arrhythmia: No. ST Change: No. INTERPRETATION Stress EKG Conclusion: No evidence of stress induced EKG changes. Imaging Protocol IMAGE PROTOCOL: Rest Tc-99m/stress Tc-99m 1 day Rest: Stress: Viability: Radiopharm.Tc99m KvpdcmholIr97h Sestamibi Fmwy90sJk 33mCi Duration 15min. 13min. Img Date 12/16/2021 12/16/2021 Inj-Img Irfn29hzm. 60min. Rest Admin Site:IV - Left AntecubitalAdministrator:PORTIA Vale Stress Admin Site: IV - Left AntecubitalAdministrator: [address] [place], RT (R)(N) STRESS DATA End Diast. Vol.77.0mlLVEDV index BSA40.0ml End Syst. Vol.13.0mlLVESV index BSA7.0ml Myocardial Jqjz525.0gEject. Jerthitv08.0% Stress Scores Regional WT0.00Summed WT6.00 Regional WM0.00Summed WM0.00 The rest and stress images show normal perfusion, normal contraction and thickening. LV Perf. Quant 17 Seg. SSS0.00 17 Seg. SRS1.00 17 Seg. SDS0.00 Stress Defect Extent (% LAD)0.00Rest Defect Extent (% LAD)5.60Rev. Defect Extent (% LAD)0.00 Stress Defect Extent (% LCX) 0.00Rest Defect Extent (% LCX)0.00Rev. Defect Extent (% LCX)0.00 Stress Defect Extent (% RCA)0.00Rest Defect Extent (% RCA)0.00Rev. Defect Extent (% RCA)0.00 Stress Defect Extent (% KWADWO)0.00Rest Defect Extent (% KWADWO)2.00Rev. Defect Extent (% KWADWO)0.00 Other Information Quality:Average Risk Assessment: Low Risk Conclusion 1. No evidence of EKG changes with stress testing. 2. Normal perfusion at stress/rest. 3. Low risk study. 4. EF > 60%. Signed by : Marta Lopez, Electronically Approved : 12/16/2021 15:26:12
== END ==
LOC: NM 08:54
PROVIDERS: ATTEND Internal Medicine Cardiovascular Disease
DX: I44.7 Left bundle-branch block, unspecified (principal)
CPT/HCPCS: 78452; 93017; A9500; J2785

== ENCOUNTER → 2022-02-02 | Outpatient (CLI) | payer MEDICARE ==
[~2022-02-02] MED LIST changes: -REGADENOSON 0.4 MG/5 ML DISP.SYRIN. IV ONE
--- NOTE | 2022-02-03 09:26 | KCIC ---
EXAMINATION: XR LUMBAR SPINE 2-3V CLINICAL HISTORY: Postoperative follow-up S/P lumbar fusion. Surgery 2020 and 2021. TECHNIQUE: XR LUMBAR SPINE 2-3V Number of Images/Views: 3 COMPARISON: 10/14/2021 FINDINGS: Normal anatomic alignment. No evidence of acute fracture. Grade 1 L4-5 anterolisthesis, similar to pr ior study. L4-5 posterior stabilization hardware with interval removal of interbody fusion device. Mu ltilevel disc space narrowing, greatest at L5-S1 and similar to prior study. Vascular calcifications. Surgical clips in the abdominal right lower quadrant. IMPRESSION: L4-5 posterior stabilization with interval removal of the interbody fusion device. Remainder of the study otherwise unchanged with multilevel degenerative disc disease. Electronically signed by: Chong Clark DO (02/03/2022 9:24 AM) [id number]
== END ==
LOC: KCIC 13:01
PROVIDERS: ATTEND Neurological Surgery
DX: M43.16 Spondylolisthesis, lumbar region (principal); M48.07 Spinal stenosis, lumbosacral region; M43.26 Fusion of spine, lumbar region; Z98.890 Other specified postprocedural states
CPT/HCPCS: 72100

== ENCOUNTER → 2022-02-28 | Outpatient (CLI) | payer MEDICARE ==
[~2022-02-28] MED LIST changes: +GADOTERATE 5 MMOL/10ML VIAL. IVP ONE
--- NOTE | 2022-02-28 10:51 | KCIC ---
EXAMINATION: Magnetic resonance imaging (MRI) of the lumbar spine with and without contrast 02/28/2022 8:50 AM HISTORY: Lumbar radiculopathy with history of prior surgery. Continued right lower extremity numbness and tingling. TECHNIQUE: Multiplanar multi-weighted MRI of the lumbar spine was performed with and without intraven ous contrast using the standard lumbar spine protocol. Contrast information: 18 mL gadolinium based contrast. COMPARISON: CT lumbar spine 11/14/2021, MRI lumbar spine 10/25/2021 FINDINGS: 2 mm retrolisthesis of L2 on L3 and L3 on L4. 4 mm anterolisthesis of L4 on L5. Posterior fusion iden tified at L4-L5 with bilateral pedicle rods. Moderate to advanced disc height loss L5-S1 with Modic t ype II endplate degenerative changes. Vertebral bodies demonstrate normal signal intensity on all seq uences. There are no compression fractures. The conus medullaris terminates at the level of L1. The distal spinal cord signal intensity is normal. 6 cm simple cyst identified in the superior pole ri ght kidney. The aorta is normal. 2.2 cm Tarlov cyst at S2. Interspinous edema identified at L3-4 and L4-L5. Improving edema identified involving the inferior endplate Schmorl's node at L4. No suspicious enhancement. T12-L1: There is a left central disc protrusion. No significant facet arthropathy. No neuroforaminal stenosis or spinal canal stenosis. L1-L2: The disc is normal in configuration. There is no facet arthropathy. There is no neuroforaminal stenosis. There is no spinal canal stenosis. L2-L3: There is a circumferential disc bulge with central disc protrusion. Mild facet arthropathy. Mo derate moderate bilateral neuroforaminal stenosis. Mild spinal canal stenosis. L3-L4: There is a circumferential disc bulge. Mild facet arthropathy. Mild bilateral neuroforaminal s tenosis. Mild spinal canal stenosis. L4-L5: This level is fused posteriorly. Moderate right and mild left neuroforaminal stenosis. No sign ificant spinal canal stenosis. Limited evaluation of the posterior elements at this level. L5-S1: There is a posterior disc osteophyte complex asymmetric to the left. Mild to moderate facet ar thropathy. Mild left neuroforaminal stenosis. No spinal canal stenosis. IMPRESSION: Moderate degenerative changes of the lumbar spine as described in detail above. Posterior fusion iden tified at L4-L5 without evidence for hardware failure. There is improving edema within the posterior subcutaneous soft tissues as compared to prior examination with residual interspinous ligament is jhonatan ma identified at L3-L4 and L4-L5. There is improving edema along the inferior endplate of L4. Electronically signed by: Maida Robertson MD (02/28/2022 10:48 AM) [facility]
== END ==
LOC: KCIC MRI 08:36
PROVIDERS: ATTEND Neurological Surgery
DX: M47.26 Other spondylosis with radiculopathy, lumbar region (principal); M51.26 Other intervertebral disc displacement, lumbar region; M25.78 Osteophyte, vertebrae; M48.8X7 Other specified spondylopathies, lumbosacral region; M48.07 Spinal stenosis, lumbosacral region; G96.191 Perineural cyst; M43.16 Spondylolisthesis, lumbar region; M51.27 Other intervertebral disc displacement, lumbosacral region; M51.46 Schmorl's nodes, lumbar region; R60.0 Localized edema
CPT/HCPCS: 72158; 82565; A9575

== ENCOUNTER → 2022-03-08 | Outpatient (CLI) | payer MEDICARE ==
[~2022-03-08] MED LIST changes: +CONTRAST GIVEN. MC PRN; -GADOTERATE 5 MMOL/10ML VIAL. IVP ONE; +IOHEXOL 180 MG/ML 10 ML VIAL. EPID ONE; +LIDOCAINE 1% Multi-Dose 20 ML VIAL. INJ ONE
[2022-03-08 09:22] LABS: CREATININE 0.6 mg/dL (0.6-1.0); GFR 99.7
--- NOTE | 2022-03-08 11:21 | RAD ---
EXAM: Fluoroscopic guided lumbar puncture for CT myelography; lumbar spine CT myelogram. HISTORY: Right sided lumbar radiculopathy. TECHNIQUE: The risks of the procedure were discussed with the patient and written and verbal consent was obtained. A timeout was performed. The patient was position on the fluoroscopy table in prone pos ition and fluoroscopic imaging was performed. A site overlying L5-S1 was selected for needle entry. Omayra cheng skin in this location was sterilely prepped, draped and infiltrated with 1 percent lidocaine. A 22 -gauge spinal needle was advanced into the thecal sac. 14 cc Omnipaque 180 intrathecal contrast was i njected into the thecal sac. The needle was removed and a sterile bandage was placed at the needle in to site. Prone and upright neutral, flexion and extension images of the lumbar spine were obtained. T skylar patient was transferred to the CT suite for the post injection CT portion of the exam. The patient tolerated the procedure without complication and was discharged one hour following the procedure in stable condition. 4 fluoroscopic images were obtained for total fluoroscopy time is 0.8 minutes. *One or more of the following individualized dose reduction techniques were utilized for this examina tion: 1. Automated exposure control. 2. Adjustment of the mA and/or kV according to patient size. 3. Use of iterative reconstruction technique. COMPARISON: MRI dated 02/28/2022. CT myelogram dated 08/23/2021. FINDINGS: There is 5 mm grade 1 anterolisthesis of L4 and L4 on L5. There is mild lumbar scoliosis. T here is a chronic right inferior lateral endplate depression with indistinct margins and large Schmor l's node at L4. No acute or subacute fracture is seen. There is no suspicious lytic or sclerotic osse ous lesion. There is multilevel endplate remodeling. There are bridging and partially bridging anterior osteophyt es at the lower thoracic and upper and mid lumbar levels. There is severe disc space narrowing and ca lcification within the disc space with partial bony bridging at L5-S1. There is instrumented posterior spinal fusion at L4-L5. The left L5 screw extends to the margin of th e left superior endplate. There is lucency surrounding this screw which was present on preoperative i mages and is consistent with an osseous hemangioma. This measures approximately 1.9 cm. There is no e vidence of instrumentation loosening. There has been interval removal of a disc space fusion device a t L4-L5. There is multilevel endplate remodeling. There is multilevel facet arthropathy. The conus terminates at L1. There is partial visualization of multiple peripherally calcified splenic artery aneurysms, th e largest of which measures approximately 1.5 cm. There is degenerative subchondral sclerosis, spurri ng and vacuum phenomenon involving the sacroiliac joints. There is an incidental Tarlov cyst within t he sacral canal. At T12-L1, there is a left paracentral disc protrusion. There is endplate remodeling. There is no kimmie nosis. At L1-L2, there is endplate remodeling. There is no stenosis. At L2-L3, there is a posterior central disc protrusion superimposed on a disc bulge and endplate davide deling. There is mild central canal stenosis. At L3-L4, there is a disc bulge and endplate remodeling. There is mild bilateral facet arthropathy. T here is mild central canal stenosis. At L4-L5, there is instrumented posterior spinal fusion. There has been disc space fusion device davide elise. There are partial laminectomy and facetectomy changes. There is a right lateral recess to extra foraminal disc protrusion and osteophyte complex superimposed on a disc bulge and endplate remodeling . There is grade 1 anterolisthesis. There is severe right and mild left foraminal stenosis with effac ement of the exiting right L4 nerve root. There is mild to moderate central canal stenosis. At L5-S1, there is endplate remodeling and partial bony bridging across the disc space. There is mild right facet arthropathy. There is mild bilateral foraminal stenosis. IMPRESSION: 1. Instrumented posterior spinal fusion at L4-L5. There has been interval removal of a disc space fus ion device at L4-L5 compared to a CT performed 11/14/2021. There is a defect within the right inferior endplate at L4 likely due to the combination of a chronic endplate depression, Schmorl's node and chou spected osteolysis surrounding the prior fusion device. There is a right lateral recess to extra fora ramón disc protrusion and osteophyte complex at this level resulting in severe right foraminal stenos is and effacement of the exiting right L4 nerve root. There are also degenerative changes resulting i n mild left foraminal and mild to moderate central canal stenosis at this level. 2. Stable degenerative change throughout the remainder of the lumbar spine, described in detail above . This is associated with mild central canal stenosis at L2-L3 and L3-L4 and mild bilateral foraminal stenosis at L5-S1. 3. Stable grade 1 anterolisthesis of L4 on L5. There is no convincing loosening of posterior transped icular screws at these levels. However, note is made that the left L5 screw is surrounded by lucency due to an osseous hemangioma. Electronically signed by: Lola Mckeon MD (03/08/2022 11:19 AM) [id number]
== END | disposition home or self-care (01) ==
LOC: RAD 08:18
PROVIDERS: ATTEND Neurological Surgery
DX: M48.061 Spinal stenosis, lumbar region without neurogenic claudication (principal); M54.16 Radiculopathy, lumbar region; M25.78 Osteophyte, vertebrae; E11.9 Type 2 diabetes mellitus without complications; F41.9 Anxiety disorder, unspecified; F32.9 Major depressive disorder, single episode, unspecified; Z90.49 Acquired absence of other specified parts of digestive tract; Z98.51 Tubal ligation status; Z98.890 Other specified postprocedural states; Z79.899 Other long term (current) drug therapy; Z79.84 Long term (current) use of oral hypoglycemic drugs; Z79.82 Long term (current) use of aspirin; Z87.891 Personal history of nicotine dependence
CPT/HCPCS: 36415; 62304; 72132; 82565; 84520; J3490; Q9965

== ENCOUNTER → 2022-03-16 | Outpatient (CLI) | payer MEDICARE ==
[~2022-03-16] MED LIST changes: -CONTRAST GIVEN. MC PRN; +DEXAMETHASONE PRES.FREE 10 MG/ML VIAL. ONE; -IOHEXOL 180 MG/ML 10 ML VIAL. EPID ONE; +IOHEXOL 180 MG/ML 10 ML VIAL. ONE; -LIDOCAINE 1% Multi-Dose 20 ML VIAL. INJ ONE
--- NOTE | 2022-03-16 10:10 | PDOC4 ---
Procedure Note: ICD 10 Code: ICD 10 Code: M54.16 M51.36 M48.06 M96.1 Procedure Note: Patient was consented for lumbar epidural steroid injection with fluoroscopic guidance. Risks were discussed including but not limited to: Bleeding, infection, possibility of epidural hematoma and subsequent neurological compromise, dural puncture, headaches, spinal cord and/or nerve damage, side effects of steroid medication, and poor results regarding pain control. Patient understands and wished to proceed. Procedure is lumbar epidural steroid injection under local anesthetic using sterile prep and drape at the L4-5 level using C-arm fluoroscopic guidance in both AP and lateral views medications injected is 20 mg dexamethasone +10mL preservative-free normal saline and 2 mL contrast- condition at discharge is stable patient tolerated procedure well had no complications. ROSARIO CARRASCO MD March 16, 2022 10:10
--- NOTE | 2022-03-16 10:10 | PDOC ---
Progress Note - Pain Clinic Date of Service: DOS: DATE: 03/16/22 TIME: 10:05 Diagnosis: Dx: Lumbar radiculopathy with lumbar degenerative disease lumbar spinal stenosis and lumbar postlaminectomy syndrome History or Present Illness: HPI: 66-year-old female returns for follow-up last seen February 2021 since has had surgery x2 with fusion at L4-5 with posterior instrumentation and cages and then revision August 2021. Patient reports that she was doing well but then was undergoing physical therapy and the pain returned significantly in the low back and the right lower extremity with pain rating the posterior gluteus lateral thigh anterior thigh medial thigh medial lower leg and into the top of the foot patient report is constant sharp stabbing with tingling and numbness in the foot and leg burning and aching before the physical therapy was doing better with walking and standing patient have myelogram showing a free disc fragment at the L4-5 level. Patient's neurosurgeon is considering additional surgery however would like to try most conservative measures first. Patient reports physical therapy was helping but then the pain returned significantly in the right lower extremity and low back has noted some on the left low back mostly on the right side radiating to the leg to the top of the foot with activity walking and standing patient reports now it keeps her from sleep at least once a night awakens her from sleep does not affect her bowel bladder control does affect her ability to walk significantly although she not use any assistive devices to ambulate. Patient reports no loss of bladder function but significant fatigability the right lower extremity with activity. Patient reports no bowel or bladder incontinence. Physical Exam: VS: Blood pressure is 135/59 pulse 80 respirations 18 temperature 98.2 F height is 5 feet 5 inches weight is 210 pounds. PE: PHYSICAL EXAMINATION: GENERAL: The patient is awake, alert, oriented, appropriate, very pleasant in demeanor HEENT: Shows normocephalic, atraumatic. Extraocular movements are intact and symmetrical. Oral cavity: Mucous membranes moist and pink. Dentition is intact. NECK: Shows anterior throat supple without palpable lymphadenopathy noted. Swallow reflex symmetrical. CHEST: Shows normal on inspection. Breath sounds are clear bilaterally. HEART: Shows S1, S2 clear. No murmurs auscultated. ABDOMEN: Soft, nontender, nondistended. No palpable organomegaly is noted. BACK: Shows spine grossly in the midline. Normal-appearing cervical lordotic curvature. There is slightly increased thoracic kyphosis, some flattening of the lumbar lordotic curvature, with well-healed midline surgical scarring. Lumbar paraspinous muscles show symmetrical on inspection, on palpation shows some moderate tenderness diffusely throughout the upper, middle and lower distribution of the paraspinous muscles, without specific trigger points, without radiation of pain. The patient has good rotational motion of the lumbar spine, both laterally as well as extension and flexion without significant difficulty. EXTREMITIES: Lower extremities show deep tendon reflexes 1+ in the patellar and tendo calcaneus tendons. Motor exam is 4 on a scale of 5 with right dorsiflexion, extension, quadriceps and hamstring flexion and 5/5 on the left. Peripheral pulses are 1+ posterior tibial. No peripheral edema is noted bilaterally. Lower extremities are warm and dry to touch, equal in color and appearance. SKIN: Shows warm and dry, good turgor. No edema. No sores, rashes or bruising throughout. Procedure: Procedure: Options were discussed with the patient, patient's old chart was reviewed as was her current medication regimen updated currently systems updated today as well. We will proceed with a lumbar epidural steroid injection stable fluoroscopic guidance. Risks were discussed including but not limited to: Bleeding, infection, possibility of epidural hematoma and subsequent neurological compromise, dural puncture, headaches, spinal cord and/or nerve damage, side effects of steroid medication, and poor results regarding pain control. Patient understands and wished to proceed. Patient will return to clinic in approximately 2 weeks for follow-up, was counseled as return appointment, activity level, and side effect to be aware of. Medication Injected: Med Injected: Procedure is lumbar epidural steroid injection under local anesthetic using sterile prep and drape at the L4-5 level using C-arm fluoroscopic guidance in both AP and lateral views medications injected is 20 mg dexamethasone +10mL preservative-free normal saline and 2 mL contrast- condition at discharge is stable patient tolerated procedure well had no complications. Condition at Discharge: Condition at Discharge: Condition at discharge is stable, patient tolerated procedure well and had no complications. ROSARIO CARRASCO MD March 16, 2022 10:10
== END | disposition home or self-care (01) ==
LOC: PNCL 08:43
PROVIDERS: ATTEND Anesthesiology
DX: M51.16 Intervertebral disc disorders with radiculopathy, lumbar region (principal); M48.061 Spinal stenosis, lumbar region without neurogenic claudication; M96.1 Postlaminectomy syndrome, not elsewhere classified; E11.9 Type 2 diabetes mellitus without complications; F41.9 Anxiety disorder, unspecified; F32.9 Major depressive disorder, single episode, unspecified; Z90.49 Acquired absence of other specified parts of digestive tract; Z98.51 Tubal ligation status; Z98.890 Other specified postprocedural states; Z87.891 Personal history of nicotine dependence; Z79.82 Long term (current) use of aspirin; Z79.84 Long term (current) use of oral hypoglycemic drugs; Z79.899 Other long term (current) drug therapy
CPT/HCPCS: 62323; J1100; Q9965